=== PATIENT | male | born 1955 | race Caucasian/White ===

== ENCOUNTER 2023-05-04 09:35 | Emergency (ER) | payer MEDICARE ==
[2023-05-04 09:58] VITALS: TEMP 98.2
--- NOTE | 2023-05-04 10:33 | ERPHSYRPT ---
- History of Present Illness Time Seen by Provider: 05/04/23 10:00 Source: patient Exam Limitations: no limitations Patient Subjective Stated Complaint: C/O SOB that started last night. Denies pain. Triage Nursing Assessment: Arrived by ambulance wearing 02 @ 5L per N/C sating 1005. 02 therapy decreased to 2L per N/C; 02 sats 95% on the 2L. Patient is alert and oriented. Labored breaths noted. Wheezes noted in upper lobes. No breath sounds noted in right lower lobe; patient states he had a lobectomy of his right lower lobe 10-15 years ago. Skin serrano/yellow. VASQUEZ WNL. Physician History: This is a 68-year-old white male patient of Dr. Boland who presents to the emergency department by ambulance service for shortness of breath that began worsening last evening. It persisted throughout the night and into the morning. Patient continues to smoke tobacco cigarettes daily. He has a history of COPD but he is not oxygen dependent. He was brought into the emergency department by the paramedics and his room air oxygen saturation level is 90%. He was placed on 2 L of oxygen via nasal cannula and his oxygen saturation level went up to 95%. Patient has a history of hyperlipidemia, hypertension, cirrhosis and dep ression. He denies chest pain. He denies abdominal pain. He does have a chronic cough. Timing/Duration: yesterday, day(s) (Last couple of days) Activities at Onset: activity Severity of Dyspnea-Max: moderate Severity of Dyspnea-Current: moderate Possible Cause: occasional episodes Modifying Factors: Improves With: activity, coughing, oxygen, rest Associated Symptoms: weakness, No chest pain/discomfort, No wheezing Allergies/Adverse Reactions: morphine Allergy (Verified 05/04/23 09:39) Home Medications: Acetaminophen 325 mg [Tylenol 325 mg] 2 tab PO Q6H PRN PRN 05/04/23 [History] Albuterol Sulfate [Albuterol Sulfate Hfa] 2 puff PO Q2H/PRN PRN 05/04/23 [History] Aspirin EC 81 mg [Ecotrin 81 mg] 1 tab PO DAILY 05/04/23 [History] Atorvastatin Calcium 1 tab PO DAILY 05/04/23 [History] Buspirone HCl 5 mg [Buspar 5 mg] 10 mg PO BID 05/04/23 [History] Fenofibrate 1 tab PO DAILY 05/04/23 [History] Fluticasone/Umeclidin/Vilanter [Trelegy Ellipta 100-62.5-25] 1 puff PO DAILY 05/04/23 [History] Gabapentin [Neurontin ] 1 cap PO HS 05/04/23 [History] Ipratropium/Albuterol Sulfate [Iprat-Albut 0.5-3(2.5) mg/3 ml] 1 neb PO Q4H PRN PRN 05/04/23 [History] Oxycodone HCl/Acetaminophen [Oxycodone-Acetaminophn 7.5-325] 1 tab PO Q6H PRN PRN 05/04/23 [History] Sertraline HCl [Zoloft] 1 tab PO HS 05/04/23 [History] Trazodone HCl 50 mg [Desyrel 50 mg] 1 tab PO HS 05/04/23 [History] Hx Tetanus, Diphtheria Vaccination/Date Given: Yes Hx Influenza Vaccination/Date Given: Yes Hx Pneumococcal Vaccination/Date Given: Yes Immunizations Up to Date: Yes Travel Risk - International Travel Have you traveled outside of the country in past 3 weeks: No - Coronavirus Screening Are you exhibiting any of the following symptoms?: Yes Symptoms: Cough: New Onset, Shortness of Breath Close contact with a COVID-19 positive Pt in past 14-21 Days: No - Vaccine Status Have you recieved a Covid-19 vaccination: Yes Director Of Home Health Services: 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 - Review of Systems Constitutional: Lethargy (Mild), Weakness Eyes: No Symptoms Ears, Nose, & Throat: No Symptoms Respiratory: Cough, Dyspnea Cardiac: No Symptoms Abdominal/Gastrointestinal: No Symptoms Genitourinary Symptoms: No Symptoms Musculoskeletal: No Symptoms Skin: No Symptoms Neurological: Lethargy Psychological: No Symptoms Endocrine: No Symptoms Hematologic/Lymphatic: No Symptoms Immunological/Allergic: No Symptoms All Other Systems: Reviewed and Negative - Past Medical History Pertinent Past Medical History: Yes Cardiac History: High Cholesterol, Hypertension Respiratory History: COPD Musculoskeletal History: Fractures GI Medical History: Cirrhosis Psycho-Social History: Depression Other Medical History: Right femur, abdominal aortic aneurysm, lung cancer - Past Surgical History Past Surgical History: Yes Respiratory: Lobectomy Other Surgical History: right hip, left eye reconstruction - Social History Smoking Status: Current every day smoker How long have you smoked: 60 years Exposure to second hand smoke: No Drug Use: none Patient Lives Alone: No ([facility]) - Nursing Vital Signs Nursing Vital Signs: Initial Vital Signs Pulse Rate 101 H 05/04/23 09:38 Respiratory Rate 23 05/04/23 09:38 Blood Pressure 176/105 05/04/23 09:38 O2 Sat by Pulse Oximetry 90 L 05/04/23 09:38 Pain Scale Pain Intensity 0 - Physical Exam General Appearance: moderate distress, lethargy (Mildly), thin Eye Exam: PERRL/EOMI, eyes nml inspection Ears, Nose, Throat Exam: hearing grossly normal, normal ENT inspection Neck Exam: normal inspection, non-tender Respiratory Exam: rhonchi (Bilateral mild) Cardiovascular/Chest Exam: normal heart sounds, regular rate/rhythm Abdominal/Gastrointestinal Exam: soft, normal bowel sounds, No tenderness Rectal Exam: not done Extremity Exam: non-tender, normal range of motion, normal inspection Neurologic Exam: oriented x 3, 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 He is oriented x 3 once you wake him up) Skin Exam: normal color, warm, dry Lymphatic Exam: No adenopathy SpO2 Interpretation: normal, ABG ordered, O2 applied SpO2: 95 O2 Delivery: Nasal Cannula - Course Nursing assessment & vital signs reviewed: Yes EKG Interpreted by Me: RATE (101), Sinus Tach, NORMAL AXIS, NORMAL INTERVALS, Right Bundle Branch Block, Other (No acute ischemic changes on today's twelve- lead EKG.) Ordered Tests: Active Orders 24 hr Category Date Time Status Interior Horticulturist STAT Care 05/04/23 10:34 Active EKG-ER Only STAT Care 05/04/23 10:33 Active IV Insertion STAT Care 05/04/23 10:33 Active Pulse Oximetry (ED) STAT Care 05/04/23 10:33 Active CHEST 1 VIEW (PORTABLE) Stat Exams 05/04/23 10:34 Completed CHEST WITH CONTRAST [CT] Stat Exams 05/04/23 11:55 Completed ABG [ARTERIAL BLOOD GASES] Stat Lab 05/04/23 11:06 Completed BLOOD CULTURE Stat Lab 05/04/23 11:13 Received CBC W DIFF Stat Lab 05/04/23 11:05 Completed CMP Stat Lab 05/04/23 11:05 Completed D-DIMER QUANTITATIVE Stat Lab 05/04/23 11:05 Completed Lactic Acid Stat Lab 05/04/23 10:33 Completed NT PRO BNPII Stat Lab 05/04/23 11:05 Completed TROPONIN Q4H Lab 05/04/23 11:05 Completed TROPONIN Q4H Lab 05/04/23 14:45 Ordered TROPONIN Q4H Lab 05/04/23 18:45 Ordered Medication Summary Generic Name Dose Route Start Last Admin Trade Name Freq PRN Reason Stop Dose Admin Ceftriaxone Sodium 1 gm in 100 mls @ 200 mls/hr 05/04/23 12:56 05/04/23 13:09 Rocephin 1 Gm / 100 Ml Nacl IV 05/04/23 13:25 200 ml/hr STAT ONE 200 mls/hr Administration Discontinued Medications Generic Name Dose Route Start Last Admin Trade Name Freq PRN Reason Stop Dose Admin Methylprednisolone Sodium 0 mg 05/04/23 11:09 05/04/23 11:19 Succinate 125 mg/ Sterile IV 05/04/23 11:10 Not Given Water 2 ml STAT ONE Furosemide 40 mg 05/04/23 12:56 05/04/23 13:08 Furosemide 40 Mg/4 Ml Vial IV 05/04/23 12:57 40 mg STAT ONE Administration Furosemide Confirm 05/04/23 13:05 Furosemide 40 Mg/4 Ml Vial Administered 05/04/23 13:06 Dose 40 mg .ROUTE .STK-MED ONE Heparin Sodium (Beef Lung) 5,000 unit 05/04/23 13:00 05/04/23 13:08 Heparin 5000 Units/0.5 Ml 5,000 Unit/0.5 Ml Syr IV 05/04/23 13:01 5,000 unit STAT ONE Administration Heparin Sodium (Beef Lung) Confirm 05/04/23 13:05 Heparin 5000 Units/0.5 Ml 5,000 Unit/0.5 Ml Syr Administered 05/04/23 13:06 Dose 5,000 unit .ROUTE .STK-MED ONE Ceftriaxone Sodium Confirm 05/04/23 13:05 Rocephin 1 Gm / 100 Ml Nacl Administered 05/04/23 13:06 Dose 1 gm in 100 mls @ ud IV .STK-MED ONE Lab/Rad Data: Laboratory Result Diagrams 05/04/23 11:05 05/04/23 11:05 Laboratory Results 05/04/23 05/04/23 05/04/23 Range/Units 11:06 11:05 11:05 WBC (4.0-10.5) x10^3/uL RBC (4.1-5.6) x10^6/uL Hgb (12.5-18.0) g/dL Hct (42-50) % MCV (78-100) fL MCH (26-32) pg MCHC (32-36) g/dL RDW (11.5-14.0) % Plt Count (150-450) x10^3/uL MPV (7.5-11.0) fL Gran % (36.0-66.0) % Immature Gran % (Auto) (0.00-0.4) % Nucleat RBC Rel Count (0.00-0.1) % Eos # (Auto) (0-0.5) x10^3/uL Immature Gran # (Auto) (0.00-0.03) x10^3u/L Absolute Lymphs (auto) (1.0-4.6) x10^3/uL Absolute Monos (auto) (0.0-1.3) x10^3/uL Absolute Nucleated RBC (0.00-0.01) x10^3u/L Lymphocytes % (24.0-44.0) % Monocytes % (0.0-12.0) % Eosinophils % (0.00-5.0) % Basophils % (0.0-0.4) % Absolute Granulocytes (1.4-6.9) x10^3/uL Basophils # (0-0.4) x10^3/uL D-Dimer (0.0-0.50) mg/L Puncture Site RIGHT RADIAL pCO2 48 H (35-45) mmHg pO2 63 L (75-100) mmHg Base Excess 3.5 H (-2.0-2.0) O2 Saturation 89.0 L (94-100) g/dF ABG pH 7.39 (7.35-7.45) ABG HCO3 29.1 H* (22-28) ABG O2 Sat (Measured) 92.3 L (95-100) % Wes Test y A-a Gradient 77 a/A Ratio 0.45 Hemoglobin 10.3 Carboxyhemoglobin 2.9 (0.0-6.9) % THgb Methemoglobin 0.7 L (1.4-1.5) % Temperature 37.0 C POC O2 Flow Rate 28 % Sodium (137-145) mmol/L Potassium 4.3 (3.5-5.1) mmol/L Chloride (98-107) mmol/L Carbon Dioxide (22-30) mmol/L Anion Gap (5-15) MEQ/L BUN (9-20) mg/dL Creatinine (0.66-1.25) mg/dL Estimated GFR ML/MIN Glucose (74-106) mg/dL Lactic Acid (0.4-2.0) Calcium (8.4-10.2) mg/dL Total Bilirubin (0.2-1.3) mg/dL AST (17-59) U/L ALT (0-50) U/L Alkaline Phosphatase (38-126) U/L Troponin I (0.000-0.034) ng/mL NT-Pro-B Natriuret Pep 35168 (<300) pg/mL Serum Total Protein (6.3-8.2) g/dL Albumin (3.5-5.0) g/dL Influenza Type A Ag NEGATIVE (NEGATIVE) Influenza Type B Ag NEGATIVE (NEGATIVE) RSV (PCR) NEGATIVE (NEGATIVE) SARS-CoV-2 (PCR) NEGATIVE (NEGATIVE) 05/04/23 05/04/23 05/04/23 Range/Units 11:05 11:05 11:05 WBC (4.0-10.5) x10^3/uL RBC (4.1-5.6) x10^6/uL Hgb (12.5-18.0) g/dL Hct (42-50) % MCV (78-100) fL MCH (26-32) pg MCHC (32-36) g/dL RDW (11.5-14.0) % Plt Count (150-450) x10^3/uL MPV (7.5-11.0) fL Gran % (36.0-66.0) % Immature Gran % (Auto) (0.00-0.4) % Nucleat RBC Rel Count (0.00-0.1) % Eos # (Auto) (0-0.5) x10^3/uL Immature Gran # (Auto) (0.00-0.03) x10^3u/L Absolute Lymphs (auto) (1.0-4.6) x10^3/uL Absolute Monos (auto) (0.0-1.3) x10^3/uL Absolute Nucleated RBC (0.00-0.01) x10^3u/L Lymphocytes % (24.0-44.0) % Monocytes % (0.0-12.0) % Eosinophils % (0.00-5.0) % Basophils % (0.0-0.4) % Absolute Granulocytes (1.4-6.9) x10^3/uL Basophils # (0-0.4) x10^3/uL D-Dimer 4.34 H* (0.0-0.50) mg/L Puncture Site pCO2 (35-45) mmHg pO2 (75-100) mmHg Base Excess (-2.0-2.0) O2 Saturation (94-100) g/dF ABG pH (7.35-7.45) ABG HCO3 (22-28) ABG O2 Sat (Measured) (95-100) % Wes Test A-a Gradient a/A Ratio Hemoglobin Carboxyhemoglobin (0.0-6.9) % THgb Methemoglobin (1.4-1.5) % Temperature C POC O2 Flow Rate % Sodium 133 L (137-145) mmol/L Potassium 4.0 (3.5-5.1) mmol/L Chloride 99 (98-107) mmol/L Carbon Dioxide 27 (22-30) mmol/L Anion Gap 11.3 (5-15) MEQ/L BUN 16 (9-20) mg/dL Creatinine 1.11 (0.66-1.25) mg/dL Estimated GFR 71.4 ML/MIN Glucose 150 H (74-106) mg/dL Lactic Acid (0.4-2.0) Calcium 9.4 (8.4-10.2) mg/dL Total Bilirubin 0.70 (0.2-1.3) mg/dL AST 92 H (17-59) U/L ALT 15 (0-50) U/L Alkaline Phosphatase 120 (38-126) U/L Troponin I 10.300 H* (0.000-0.034) ng/mL NT-Pro-B Natriuret Pep (<300) pg/mL Serum Total Protein 7.5 (6.3-8.2) g/dL Albumin 4.0 (3.5-5.0) g/dL Influenza Type A Ag (NEGATIVE) Influenza Type B Ag (NEGATIVE) RSV (PCR) (NEGATIVE) SARS-CoV-2 (PCR) (NEGATIVE) 05/04/23 05/04/23 Range/Units 11:05 10:33 WBC 12.8 H (4.0-10.5) x10^3/uL RBC 3.13 L (4.1-5.6) x10^6/uL Hgb 9.7 L (12.5-18.0) g/dL Hct 30.8 L (42-50) % MCV 98.4 (78-100) fL MCH 31.0 (26-32) pg MCHC 31.5 L (32-36) g/dL RDW 14.7 H (11.5-14.0) % Plt Count 541 H (150-450) x10^3/uL MPV 9.9 (7.5-11.0) fL Gran % 89.7 H (36.0-66.0) % Immature Gran % (Auto) 0.6 H (0.00-0.4) % Nucleat RBC Rel Count 0.0 (0.00-0.1) % Eos # (Auto) 0.01 (0-0.5) x10^3/uL Immature Gran # (Auto) 0.08 H (0.00-0.03) x10^3u/L Absolute Lymphs (auto) 0.76 L (1.0-4.6) x10^3/uL Absolute Monos (auto) 0.41 (0.0-1.3) x10^3/uL Absolute Nucleated RBC 0.00 (0.00-0.01) x10^3u/L Lymphocytes % 5.9 L (24.0-44.0) % Monocytes % 3.2 (0.0-12.0) % Eosinophils % 0.1 (0.00-5.0) % Basophils % 0.5 (0.0-0.4) % Absolute Granulocytes 11.50 H (1.4-6.9) x10^3/uL Basophils # 0.06 (0-0.4) x10^3/uL D-Dimer (0.0-0.50) mg/L Puncture Site pCO2 (35-45) mmHg pO2 (75-100) mmHg Base Excess (-2.0-2.0) O2 Saturation (94-100) g/dF ABG pH (7.35-7.45) ABG HCO3 (22-28) ABG O2 Sat (Measured) (95-100) % Wes Test A-a Gradient a/A Ratio Hemoglobin Carboxyhemoglobin (0.0-6.9) % THgb Methemoglobin (1.4-1.5) % Temperature C POC O2 Flow Rate % Sodium (137-145) mmol/L Potassium (3.5-5.1) mmol/L Chloride (98-107) mmol/L Carbon Dioxide (22-30) mmol/L Anion Gap (5-15) MEQ/L BUN (9-20) mg/dL Creatinine (0.66-1.25) mg/dL Estimated GFR ML/MIN Glucose (74-106) mg/dL Lactic Acid 1.0 (0.4-2.0) Calcium (8.4-10.2) mg/dL Total Bilirubin (0.2-1.3) mg/dL AST (17-59) U/L ALT (0-50) U/L Alkaline Phosphatase (38-126) U/L Troponin I (0.000-0.034) ng/mL NT-Pro-B Natriuret Pep (<300) pg/mL Serum Total Protein (6.3-8.2) g/dL Albumin (3.5-5.0) g/dL Influenza Type A Ag (NEGATIVE) Influenza Type B Ag (NEGATIVE) RSV (PCR) (NEGATIVE) SARS-CoV-2 (PCR) (NEGATIVE) - Progress Progress: improved, re-examined Air Movement: fair Progress Note: 05/04/23 11:14 This patient's medical issue is 1 of moderate complexity. The level of complexity and the workup performed is based on review of the patient's past medical history, review of the patient's medication list, review of the patient drug allergy list, history of present illness and physical findings on examination. The workup in this patient includes placement of an intravenous line, infusion of steroids, drawing of CBC, CMP, BNP, D-dimer, troponin level, chest x-ray, twelve-lead EKG, ABG and viral swabs. 05/04/23 12:30 Chest x-ray was interpreted by the radiologist and I reviewed the impression. The impression states new diffuse pulmonary edema, new small right and tiny left pleural effusions. There is new right mid to lower lung airspace disease 05/04/23 12:57 I interpreted the laboratory data results. Patient has normal renal function and an elevated D-dimer. I ordered a CT scan of the chest with contrast to evaluate for pulmonary embolus. Patient also has a troponin level that is over 10. 05/04/23 12:59 A phone call was made to [facility] in [facility]. After the nursing staff here in the emergency department reviewed the diagnosis and the l aboratory results with the transfer center, they auto accepted this patient. The accepting physician is emergency room physician Dr. Saeed 05/04/23 13:08 CT scan of the chest with contrast was interpreted by the radiologist. It is negative for pulmonary embolus. There is a new right lower lobe consolidating/lung consolidating airspace disease with tiny effusion present. There is also a new small left pleural effusion present. Blood Culture(s) Obtained: Yes Antibiotics given: Yes Counseled pt/family regarding: lab results, diagnosis, rad results Medical Desision Making - Diagnostic Testing Diagnostic test were ordered, analyzed, and reviewed by me: Yes Radiological Interpretation: Reviewed by me, Teleradiologist Report - Risk of complications The pt has a high risk of morbidity or mortality based on: Decision regarding hospitilization or escalation of hosp level of care - Departure Departure Disposition: Transfer Clinical Impression: Shortness of breath, Elevated troponin, CHF exacerbation, Pulmonary infiltrate in right lung on CXR, Elevated d-dimer, Bilateral pleural effusion Condition: Serious Critical Care Time: Yes Critical Care Time(excluding separately billable procedures): Critical 30-74 mins (40 minutes) Referrals: LOULOU BOLAND MD [ACTIVE STAFF] - Follow up/PCP as directed Instructions: Heart Failure
--- NOTE | 2023-05-04 11:04 | XRAY ---
Indication: Short of breath. Comparison: March 15, 2021 Portable chest demonstrates new diffuse pulmonary edema, new small right/tiny left effusions, and new right mid to lower lung airspace disease. Remaining chest unchanged again with COPD and right apical pleural parenchymal fibrosis/scarring. Heart not enlarged. Bony thorax intact.
[2023-05-04] MEDS ORDERED: solu-MEDROL 125 MG, Sterile H2O 10 ml 2 ML IV ONE ×2 (11:09)
[2023-05-04 11:19] VITALS: RESP 24
[2023-05-04 11:23] LABS: BASOPHIL % 0.5 % (0.0-0.4); Basophil (Absolute #) 0.06 x10^3/uL (0-0.4); Eosinophil % 0.1 % (0.00-5.0); Eosinophil (Absolute #) 0.01 x10^3/uL (0-0.5); Hematocrit 30.8 % (42-50); Hemoglobin 9.7 g/dL (12.5-18.0); IMMATURE GRAN # 0.08 x10^3u/L (0.00-0.03); IMMATURE GRAN % 0.6 % (0.00-0.4); Lymphocyte (Absolute #) 0.76 x10^3/uL (1.0-4.6); Lymphocytes % 5.9 % (24.0-44.0); Mean Cell Volume 98.4 fL (78-100); Mean Corpuscular Hgb Concent. 31.5 g/dL (32-36); Mean Platelet Volume 9.9 fL (7.5-11.0); Monocyte (Absolute #) 0.41 x10^3/uL (0.0-1.3); Monocytes % 3.2 % (0.0-12.0); Neutrophil % 89.7 % (36.0-66.0); Platelet Count 541 x10^3/uL (150-450); Red Blood Count 3.13 x10^6/uL (4.1-5.6); Red Cell Distribution Width 14.7 % (11.5-14.0); White Blood Count 12.8 x10^3/uL (4.0-10.5)
[2023-05-04 11:25] LABS: A-aADO2 77; ABG HEMOGLOBIN 10.3; ABG POTASSIUM 4.3 (3.5-5.1); ARTERIAL BLD GAS O2 SATURATION 92.3 % (95-100); ARTERIAL BLOOD GAS BASE EXCESS 3.5 (-2.0-2.0); ARTERIAL BLOOD GAS FIO2 28 %; ARTERIAL BLOOD GAS PCO2 48 mmHg (35-45); ARTERIAL BLOOD GAS PO2 63 mmHg (75-100); ARTERIAL BLOOD GAS pH 7.39 (7.35-7.45); CARBOXYHEMOGLOBIN 2.9 % THgb (0.0-6.9); HCO3- 29.1 (22-28); Methhemoglobin 0.7 % (1.4-1.5); paO2 pAO1 0.45
[2023-05-04 11:26] LABS: ABG SITE RIGHT RADIAL; ALLEN TEST OK? y
[2023-05-04 11:37] LABS: ANION GAP 11.3 MEQ/L (5-15); BILIRUBIN,TOTAL 0.7 mg/dL (0.2-1.3); Calcium 9.4 mg/dL (8.4-10.2); Creatinine 1 1.11 mg/dL (0.66-1.25); EST GLOMERULAR FILTRATION RATE 71.4 ML/MIN; Total Protein 7.5 g/dL (6.3-8.2)
[2023-05-04 12:06] LABS: INFLUENZA A NEGATIVE (NEGATIVE); INFLUENZA B NEGATIVE (NEGATIVE); RESPIRATORY SYNCTIAL VIRUS NEGATIVE (NEGATIVE); SARS-CoV-2 Xpert Express NEGATIVE (NEGATIVE)
[2023-05-04 12:07] VITALS: BP 165/99; PULSE 89
[2023-05-04 12:34] VITALS: O2SAT 95
[2023-05-04] MEDS ORDERED: ROCEPHIN 1 GM / 100 ML NaCl 1 GM/100 ML IVPB IV ONE ×2 (12:56→13:05)
[2023-05-04] MEDS ORDERED: Lasix 40 MG/4 ML IV ONE (12:56)
--- NOTE | 2023-05-04 12:58 | XRAY ---
Indication: Short of breath. Elevated d-dimer. History lung cancer with partial right lung resection. Multiple contiguous axial images obtained through the chest using 80 cc Isovue 370 contrast and PE protocol. Comparison: September 23, 2020 Good opacification of the pulmonary arteries to include the lobar and segmental branches. No pulmonary embolus. Heart not enlarged. Aorta again moderately arteriosclerotic. Mid descending thoracic aorta now demonstrates focus of saccular aneurysm measuring at least 2.5 x 1.3 cm in greatest axial dimension and at least 3 cm in CC dimension. Additional smaller 1.2 x 0.8 cm saccular aneurysm just inferior to this. Again tiny subcarinal calcified nodes. No pathologic mediastinal/hilar lymphadenopathy. Midesophagus demonstrates new fluid leveling presumed from reflux. Lungs demonstrate new posterior right lower lobe consolidating/nonconsolidated airspace disease with tiny effusion. Also new small left effusion with minimal left base compressive atelectasis. Remaining lungs again demonstrate extensive pulmonary emphysema, right lung postsurgical pleural-parenchymal scarring/thickening with volume loss, Bony thorax intact. Limited upper abdomen again demonstrates mild diffuse fatty liver. New incompletely visualized 3.5 x 4.3 cm distal AAA with stent graft, new atrophic right kidney, and 1.5 cm left mid renal cyst. Impression: 1. Negative pulmonary embolus. 2. New right lower lobe consolidating/nonconsolidating airspace disease with tiny effusion. Also new small left effusion. 3. Again diffuse arteriosclerotic disease with new descending thoracic aortic saccular aneurysms as detailed. Also new incompletely visualized distal AAA with stent graft. 4. Incidental chronic findings including right lung postsurgical changes, diffuse pulmonary emphysema, subcarinal calcified node, GERD, fatty liver, and left renal cyst.
[2023-05-04] MEDS ORDERED: HEPARIN 5000 UNITS/0.5 ML (HIGH RISK MED) IV ONE (13:00)
[2023-05-04] MEDS ORDERED: HEPARIN 5000 UNITS/0.5 ML (HIGH RISK MED) ONE (13:05)
[2023-05-04] MEDS ORDERED: Lasix 40 MG/4 ML ONE (13:05)
== END 2023-05-04 14:05 | disposition short-term general hospital (02) ==
LOC: ED 09:35
DX: R06.02 Shortness of breath (principal); R77.8 Other specified abnormalities of plasma proteins; I11.0 Hypertensive heart disease with heart failure; I50.9 Heart failure, unspecified; R91.8 Other nonspecific abnormal finding of lung field; R79.1 Abnormal coagulation profile; J90 Pleural effusion, not elsewhere classified; E78.5 Hyperlipidemia, unspecified; Z79.891 Long term (current) use of opiate analgesic; Z79.899 Other long term (current) drug therapy; Z72.0 Tobacco use; Z20.828 Contact with and (suspected) exposure to other viral communicable diseases
CPT/HCPCS: 0241U; 36000; 36415; 36600; 71045; 71260; 80053; 82375; 82803; 83605; 83880; 84484; 85025; 85379; 87040; 93005; 93041; 94760; 96375; 99285; 99291; J0696; J1644; J1940

== ENCOUNTER 2023-05-29 02:22 | Inpatient (IN) | payer MEDICARE ==
--- NOTE | 2023-05-29 02:31 | ERPHSYRPT ---
- History of Present Illness Historian: patient, family Exam Limitations: no limitations Timing/Duration: yesterday Activities at Onset: none Quality: aching Abdominal Pain Onset Location: generalized abdomen Pain Radiation: no radiation Severity of Pain-Max: mild (To moderate) Modifying Factors: Improves With: vomiting (X 3 episodes) Associated Symptoms: fever/chills, fatigue, nausea, vomiting, weakness, No shortness of breath Previous symptoms: recently seen, recent hospitalization Hx Tetanus, Diphtheria Vaccination/Date Given: Yes Hx Influenza Vaccination/Date Given: Yes Hx Pneumococcal Vaccination/Date Given: Yes <ROSALVA EDWARDS - Last Filed: 05/29/23 07:03> <WALESKA RAY - Last Filed: 05/29/23 10:19> - History of Present Illness Time Seen by Provider: 05/29/23 02:30 Physician History: This is a 68-year-old white male patient of Dr. Boland who presents by private vehicle from home with complaints of vomiting x 3 and abdominal pain. He also has complaints of fatigue, fever, chills, cough, shortness of breath, headache and bodyaches. Patient was a resident at the [facility]-care facility rehabbing post open heart surgery. He was seen here in our emergency department on 05/04/2023 and was transferred out to [facility] facility secondary to significant shortness of breath and very high troponin level. He has a well-healed midline sternotomy scar. Patient has a history of hyperlipidemia, hypertension, COPD, cirrhosis, abdominal aortic aneurysm and lung cancer in the past. He is a smoker of cigarettes daily. Because of his abdominal pain symptoms and headache as well as body aches, patient took an oxycodone 7.5/325 mg at 2 this morning. He currently denies chest pain and has no significant shortness of breath. Patient was discharged from the [facility] yesterday, 05/28/2023. (ROSALVA EDWARDS) Allergies/Adverse Reactions: morphine Allergy (Verified 05/29/23 03:04) Home Medications: Acetaminophen 325 mg [Tylenol 325 mg] 2 tab PO Q6H PRN PRN 05/04/23 [His tory] Albuterol Sulfate [Albuterol Sulfate Hfa] 2 puff PO Q2H/PRN PRN 05/04/23 [History] Atorvastatin Calcium 1 tab PO DAILY 05/04/23 [History] Buspirone HCl 5 mg [Buspar 5 mg] 10 mg PO BID 05/04/23 [History] Fenofibrate 1 tab PO DAILY 05/04/23 [History] Gabapentin [Neurontin ] 1 cap PO HS 05/04/23 [History] Ipratropium/Albuterol Sulfate [Iprat-Albut 0.5-3(2.5) mg/3 ml] 1 neb PO Q4H PRN PRN 05/04/23 [History] Oxycodone HCl/Acetaminophen [Oxycodone-Acetaminophn 7.5-325] 1 tab PO Q6H PRN PRN 05/04/23 [History] Sertraline HCl [Zoloft] 1 tab PO HS 05/04/23 [History] Trazodone HCl 50 mg [Desyrel 50 mg] 1 tab PO HS 05/04/23 [History] Travel Risk - International Travel Have you traveled outside of the country in past 3 weeks: No - Coronavirus Screening Are you exhibiting any of the following symptoms?: Yes Symptoms: Fever, Cough: New Onset, Vomiting/Diarrhea, Headaches/Body Aches/Fatigue Close contact with a COVID-19 positive Pt in past 14-21 Days: No - Vaccine Status Have you recieved a Covid-19 vaccination: Yes 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 <ROSALVA EDWARDS - Last Filed: 05/29/23 07:03> - Review of Systems Constitutional: Fever, Chills, Weakness Eyes: No Symptoms Ears, Nose, & Throat: No Symptoms Respiratory: Cough Cardiac: No Symptoms Abdominal/Gastrointestinal: Abdominal Pain, Nausea, Vomiting, Appetite Changes Genitourinary Symptoms: No Symptoms Musculoskeletal: No Symptoms Skin: No Symptoms Neurological: No Symptoms Psychological: No Symptoms Endocrine: No Symptoms Hematologic/Lymphatic: No Symptoms Immunological/Allergic: No Symptoms All Other Systems: Reviewed and Negative <ROSALVA EDWARDS - Last Filed: 05/29/23 07:03> - Past Medical History Pertinent Past Medical History: Yes Cardiac History: High Cholesterol, Hypertension Respiratory History: COPD Musculoskeletal History: Fractures GI Medical History: Cirrhosis Psycho-Social History: Depression Other Medical History: Right femur, abdominal aortic aneurysm, lung cancer - Past Surgical History Past Surgical History: Yes Respiratory: Lobectomy Other Surgical History: right hip, left eye reconstruction - Social History Smoking Status: Current every day smoker How long have you smoked: 60 years Exposure to second hand smoke: No Drug Use: none Patient Lives Alone: No (The [facility]) <ROSALVA EDWARDS - Last Filed: 05/29/23 07:03> - Physical Exam General Appearance: no apparent distress, alert, anxiety, thin Eye Exam: PERRL/EOMI, eyes nml inspection Ears, Nose, Throat Exam: normal ENT inspection, moist mucous membranes Neck Exam: normal inspection, non-tender, supple, full range of motion Respiratory Exam: normal breath sounds, lungs clear, airway intact, No chest t enderness, No respiratory distress Cardiovascular Exam: regular rate/rhythm, normal heart sounds, normal peripheral pulses, other (Well-healing midline sternotomy scar) Gastrointestinal/Abdomen Exam: soft, normal bowel sounds, No tenderness Rectal Exam: not done Back Exam: normal inspection, normal range of motion, No CVA tenderness, No vertebral tenderness Extremity Exam: normal inspection, normal range of motion, pelvis stable Neurologic Exam: alert, oriented x 3, cooperative, sales and service associate II-XII nml as tested, normal mood/affect, nml cerebellar function, nml station & gait, sensation nml Skin Exam: normal color, warm, dry Lymphatic Exam: No adenopathy SpO2 Interpretation: borderline oxygenation O2 Delivery: Room Air <ROSALVA EDWARDS - Last Filed: 05/29/23 07:03> - Nursing Vital Signs Nursing Vital Signs: Initial Vital Signs Temperature 98.7 F 05/29/23 02:24 Pulse Rate 74 05/29/23 02:24 Respiratory Rate 25 H 05/29/23 02:24 Blood Pressure 203/96 05/29/23 02:24 O2 Sat by Pulse Oximetry 88 L 05/29/23 02:24 Pain Scale Pain Intensity 6 - Course Nursing assessment & vital signs reviewed: Yes EKG Interpreted by Me: RATE (71), Sinus Rhythm, NORMAL AXIS, NORMAL INTERVALS, NORMAL QRS, NORMAL ST-T, Other (No acute ischemic changes on today's twelve-lead EKG.) <ROSALVA EDWARDS - Last Filed: 05/29/23 07:03> Ordered Tests: Active Orders 24 hr Category Date Time Status EKG-ER Only STAT Care 05/29/23 03:26 Completed IV Insertion STAT Care 05/29/23 03:26 Active ABDOMEN AND PELVIS W/0 CONTRAS [CT] Stat Exams 05/29/23 04:23 Completed CHEST WITH CONTRAST [CT] Stat Exams 05/29/23 06:00 Completed HEAD WITHOUT CONTRAST [CT] Stat Exams 05/29/23 06:00 Completed AMYLASE Stat Lab 05/29/23 04:06 Completed BNPII [NT PRO BNPII] Stat Lab 05/29/23 04:06 Completed CBC W DIFF Stat Lab 05/29/23 04:06 Completed CMP Stat Lab 05/29/23 04:06 Completed LIPASE Stat Lab 05/29/23 04:06 Completed MAGNESIUM Stat Lab 05/29/23 04:06 Completed MONO SCREEN Stat Lab 05/29/23 04:06 Completed TROPONIN Q4H Lab 05/29/23 09:40 Completed TROPONIN Q4H Lab 05/29/23 13:45 Ordered TROPONIN Q4H Lab 05/29/23 17:45 Ordered TROPONIN Q4H Lab 05/29/23 21:45 Ordered TROPONIN Stat Lab 05/29/23 04:06 Completed UA W/RFX UR CULTURE Stat Lab 05/29/23 03:27 Completed Medication Summary Generic Name Dose Route Start Last Admin Trade Name Freq PRN Reason Stop Dose Admin Sodium Chloride 1,000 mls @ 100 mls/hr 05/29/23 03:30 05/29/23 04:08 Sodium Chloride 0.9% 1000 Ml IV 06/28/23 03:29 100 mls/hr .Q10H GERSON Administration Discontinued Medications Generic Name Dose Route Start Last Admin Trade Name Freq PRN Reason Stop Dose Admin Enoxaparin Sodium 65 mg 05/29/23 07:03 05/29/23 07:39 Enoxaparin Sodium 80 Mg/0.8 Ml Syringe SQ 05/29/23 07:04 65 mg STAT ONE Administration Enoxaparin Sodium Confirm 05/29/23 07:33 Enoxaparin Sodium 80 Mg/0.8 Ml Syringe Administered 05/29/23 07:34 Dose 80 mg SQ .STK-MED ONE Furosemide 40 mg 05/29/23 06:43 05/29/23 07:38 Furosemide 40 Mg/4 Ml Vial IV 05/29/23 06:44 40 mg STAT ONE Administration Furosemide Confirm 05/29/23 07:33 Furosemide 40 Mg/4 Ml Vial Administered 05/29/23 07:34 Dose 40 mg .ROUTE .STK-MED ONE Ceftriaxone Sodium 1 gm in 100 mls @ 200 mls/hr 05/29/23 06:40 05/29/23 08:21 Rocephin 1 Gm / 100 Ml Nacl IV 05/29/23 07:09 Infused STAT ONE Infusion Ceftriaxone Sodium Confirm 05/29/23 07:34 Rocephin 1 Gm / 100 Ml Nacl Administered 05/29/23 07:35 Dose 1 gm in 100 mls @ ud IV .STK-MED ONE Labetalol HCl 10 mg 05/29/23 05:47 05/29/23 05:55 Labetalol Hcl 20 Mg/4 Ml Disp.Syringe IV 05/29/23 05:48 10 mg STAT ONE Administration Labetalol HCl Confirm 05/29/23 05:53 Labetalol Hcl 20 Mg/4 Ml Disp.Syringe Administered 05/29/23 05:54 Dose 20 mg IV .STK-MED ONE Labetalol HCl 5 mg 05/29/23 06:51 05/29/23 07:38 Labetalol Hcl 20 Mg/4 Ml Disp.Syringe IV 05/29/23 06:52 5 mg STAT ONE Administration Labetalol HCl Confirm 05/29/23 07:34 Labetalol Hcl 20 Mg/4 Ml Disp.Syringe Administered 05/29/23 07:35 Dose 20 mg IV .STK-MED ONE Meperidine HCl 25 mg 05/29/23 05:47 05/29/23 06:03 Meperidine Hcl 25 Mg Syringe IV 05/29/23 05:48 Not Given STAT ONE Meperidine HCl Confirm 05/29/23 05:52 Meperidine Hcl 50 Mg/Ml Carp Administered 05/29/23 05:53 Dose 50 mg .ROUTE .STK-MED ONE Meperidine HCl 25 mg 05/29/23 06:04 05/29/23 06:07 Meperidine Hcl 50 Mg/Ml Carp IV 05/29/23 06:05 25 mg STAT ONE Administration Ondansetron HCl 4 mg 05/29/23 05:47 05/29/23 05:54 Ondansetron Hcl 4 Mg/2 Ml Vial IV 05/29/23 05:48 4 mg STAT ONE Administration Ondansetron HCl Confirm 05/29/23 05:52 Ondansetron Hcl 4 Mg/2 Ml Vial Administered 05/29/23 05:53 Dose 4 mg .ROUTE .STK-MED ONE Lab/Rad Data: Laboratory Result Diagrams 05/29/23 04:06 05/29/23 04:06 Laboratory Results 05/29/23 05/29/23 05/29/23 Range/Units 09:40 04:06 04:06 WBC (4.0-10.5) x10^3/uL RBC (4.1-5.6) x10^6/uL Hgb (12.5-18.0) g/dL Hct (42-50) % MCV (78-100) fL MCH (26-32) pg MCHC (32-36) g/dL RDW (11.5-14.0) % Plt Count (150-450) x10^3/uL MPV (7.5-11.0) fL Gran % (36.0-66.0) % Immature Gran % (Auto) (0.00-0.4) % Nucleat RBC Rel Count (0.00-0.1) % Eos # (Auto) (0-0.5) x10^3/uL Immature Gran # (Auto) (0.00-0.03) x10^3u/L Absolute Lymphs (auto) (1.0-4.6) x10^3/uL Absolute Monos (auto) (0.0-1.3) x10^3/uL Absolute Nucleated RBC (0.00-0.01) x10^3u/L Lymphocytes % (24.0-44.0) % Monocytes % (0.0-12.0) % Eosinophils % (0.00-5.0) % Basophils % (0.0-0.4) % Absolute Granulocytes (1.4-6.9) x10^3/uL Basophils # (0-0.4) x10^3/uL Sodium (137-145) mmol/L Potassium (3.5-5.1) mmol/L Chloride (98-107) mmol/L Carbon Dioxide (22-30) mmol/L Anion Gap (5-15) MEQ/L BUN (9-20) mg/dL Creatinine (0.66-1.25) mg/dL Estimated GFR ML/MIN Glucose (74-106) mg/dL Calcium (8.4-10.2) mg/dL Magnesium 2.1 (1.6-2.3) mg/dL Total Bilirubin (0.2-1.3) mg/dL AST (17-59) U/L ALT (0-50) U/L Alkaline Phosphatase (38-126) U/L Troponin I 0.061 H* (0.000-0.034) ng/mL NT-Pro-B Natriuret Pep 21275 (<300) pg/mL Serum Total Protein (6.3-8.2) g/dL Albumin (3.5-5.0) g/dL Amylase (30-110) U/L Lipase (23-300) U/L Urine Color (Yellow) Urine Appearance (Clear) Urine pH (4.6-8.0) Ur Specific [place] (1.005-1.030) Urine Protein (Negative) Urine Glucose (UA) (Negative) mg/dL Urine Ketones (Negative) Urine Blood (Negative) Urine Nitrite (Negative) Urine Bilirubin (Negative) Urine Urobilinogen (0.2) mg/dL Ur Leukocyte Esterase (Negative) U Hyaline Cast (Auto) (0-2) /LPF Urine Microscopic RBC (0-5) /HPF Urine Microscopic WBC (0-5) /HPF Ur Epithelial Cells (None Seen) /HPF Urine Bacteria (None Seen) /HPF Urine Culture Reflexed (NO) Monoscreen (NEGATIVE) Influenza Type A Ag NEGATIVE (NEGATIVE) Influenza Type B Ag NEGATIVE (NEGATIVE) RSV (PCR) NEGATIVE (NEGATIVE) SARS-CoV-2 (PCR) NEGATIVE (NEGATIVE) 05/29/23 05/29/23 05/29/23 Range/Units 04:06 04:06 04:06 WBC (4.0-10.5) x10^3/uL RBC (4.1-5.6) x10^6/uL Hgb (12.5-18.0) g/dL Hct (42-50) % MCV (78-100) fL MCH (26-32) pg MCHC (32-36) g/dL RDW (11.5-14.0) % Plt Count (150-450) x10^3/uL MPV (7.5-11.0) fL Gran % (36.0-66.0) % Immature Gran % (Auto) (0.00-0.4) % Nucleat RBC Rel Count (0.00-0.1) % Eos # (Auto) (0-0.5) x10^3/uL Immature Gran # (Auto) (0.00-0.03) x10^3u/L Absolute Lymphs (auto) (1.0-4.6) x10^3/uL Absolute Monos (auto) (0.0-1.3) x10^3/uL Absolute Nucleated RBC (0.00-0.01) x10^3u/L Lymphocytes % (24.0-44.0) % Monocytes % (0.0-12.0) % Eosinophils % (0.00-5.0) % Basophils % (0.0-0.4) % Absolute Granulocytes (1.4-6.9) x10^3/uL Basophils # (0-0.4) x10^3/uL Sodium 134 L (137-145) mmol/L Potassium 3.7 (3.5-5.1) mmol/L Chloride 99 (98-107) mmol/L Carbon Dioxide 34 H (22-30) mmol/L Anion Gap 5.5 (5-15) MEQ/L BUN 14 (9-20) mg/dL Creatinine 0.91 (0.66-1.25) mg/dL Estimated GFR 90.7 ML/MIN Glucose 138 H (74-106) mg/dL Calcium 9.4 (8.4-10.2) mg/dL Magnesium (1.6-2.3) mg/dL Total Bilirubin 0.50 (0.2-1.3) mg/dL AST 25 (17-59) U/L ALT 14 (0-50) U/L Alkaline Phosphatase 149 H (38-126) U/L Troponin I 0.067 H* (0.000-0.034) ng/mL NT-Pro-B Natriuret Pep (<300) pg/mL Serum Total Protein 7.1 (6.3-8.2) g/dL Albumin 3.8 (3.5-5.0) g/dL Amylase 49 (30-110) U/L Lipase 36 (23-300) U/L Urine Color (Yellow) Urine Appearance (Clear) Urine pH (4.6-8.0) Ur Specific [place] (1.005-1.030) Urine Protein (Negative) Urine Glucose (UA) (Negative) mg/dL Urine Ketones (Negative) Urine Blood (Negative) Urine Nitrite (Negative) Urine Bilirubin (Negative) Urine Urobilinogen (0.2) mg/dL Ur Leukocyte Esterase (Negative) U Hyaline Cast (Auto) (0-2) /LPF Urine Microscopic RBC (0-5) /HPF Urine Microscopic WBC (0-5) /HPF Ur Epithelial Cells (None Seen) /HPF Urine Bacteria (None Seen) /HPF Urine Culture Reflexed (NO) Monoscreen NEGATIVE (NEGATIVE) Influenza Type A Ag (NEGATIVE) Influenza Type B Ag (NEGATIVE) RSV (PCR) (NEGATIVE) SARS-CoV-2 (PCR) (NEGATIVE) 05/29/23 05/29/23 Range/Units 04:06 03:27 WBC 10.2 (4.0-10.5) x10^3/uL RBC 3.42 L (4.1-5.6) x10^6/uL Hgb 10.0 L (12.5-18.0) g/dL Hct 32.4 L (42-50) % MCV 94.7 (78-100) fL MCH 29.2 (26-32) pg MCHC 30.9 L (32-36) g/dL RDW 14.1 H (11.5-14.0) % Plt Count 350 (150-450) x10^3/uL MPV 10.3 (7.5-11.0) fL Gran % 82.0 H (36.0-66.0) % Immature Gran % (Auto) 0.5 H (0.00-0.4) % Nucleat RBC Rel Count 0.0 (0.00-0.1) % Eos # (Auto) 0.02 (0-0.5) x10^3/uL Immature Gran # (Auto) 0.05 H (0.00-0.03) x10^3u/L Absolute Lymphs (auto) 1.13 (1.0-4.6) x10^3/uL Absolute Monos (auto) 0.59 (0.0-1.3) x10^3/uL Absolute Nucleated RBC 0.00 (0.00-0.01) x10^3u/L Lymphocytes % 11.1 L (24.0-44.0) % Monocytes % 5.8 (0.0-12.0) % Eosinophils % 0.2 (0.00-5.0) % Basophils % 0.4 (0.0-0.4) % Absolute Granulocytes 8.33 H (1.4-6.9) x10^3/uL Basophils # 0.04 (0-0.4) x10^3/uL Sodium (137-145) mmol/L Potassium (3.5-5.1) mmol/L Chloride (98-107) mmol/L Carbon Dioxide (22-30) mmol/L Anion Gap (5-15) MEQ/L BUN (9-20) mg/dL Creatinine (0.66-1.25) mg/dL Estimated GFR ML/MIN Glucose (74-106) mg/dL Calcium (8.4-10.2) mg/dL Magnesium (1.6-2.3) mg/dL Total Bilirubin (0.2-1.3) mg/dL AST (17-59) U/L ALT (0-50) U/L Alkaline Phosphatase (38-126) U/L Troponin I (0.000-0.034) ng/mL NT-Pro-B Natriuret Pep (<300) pg/mL Serum Total Protein (6.3-8.2) g/dL Albumin (3.5-5.0) g/dL Amylase (30-110) U/L Lipase (23-300) U/L Urine Color Yellow (Yellow) Urine Appearance Clear (Clear) Urine pH 8.0 (4.6-8.0) Ur Specific [place] 1.020 (1.005-1.030) Urine Protein 300 A (Negative) Urine Glucose (UA) Negative (Negative) mg/dL Urine Ketones Negative (Negative) Urine Blood Negative (Negative) Urine Nitrite Negative (Negative) Urine Bilirubin Negative (Negative) Urine Urobilinogen 0.2 (0.2) mg/dL Ur Leukocyte Esterase Negative (Negative) U Hyaline Cast (Auto) NONE SEEN (0-2) /LPF Urine Microscopic RBC 3-5 (0-5) /HPF Urine Microscopic WBC 0-2 (0-5) /HPF Ur Epithelial Cells None Seen (None Seen) /HPF Urine Bacteria None Seen (None Seen) /HPF Urine Culture Reflexed NO (NO) Monoscreen (NEGATIVE) Influenza Type A Ag (NEGATIVE) Influenza Type B Ag (NEGATIVE) RSV (PCR) (NEGATIVE) SARS-CoV-2 (PCR) (NEGATIVE) - Progress Progress: improved, pain not gone completely, re-examined Counseled pt/family regarding: lab results, diagnosis, need for follow-up, rad results <ROSALVA EDWARDS - Last Filed: 05/29/23 07:03> - Progress Progress: improved, pain not gone completely, re-examined <WALESKA RAY - Last Filed: 05/29/23 10:19> - Progress Progress Note: 05/29/23 06:07 This patient's medical issue is 1 of moderate to high complexity. The level of complexity in the workup performed is based on review of the patient's past medical history, review of the patient's medication list, review of the patient' s drug allergy list, history of present illness and physical findings on examination. The workup in this patient includes placement of intravenous line, CBC, CMP, amylase, lipase, urinalysis, CT scan of the abdomen pelvis without contrast, twelve-lead EKG, troponin level. I interpreted the patient's laboratory data results. Patient's troponin is elevated. However, approximately 3 weeks ago patient had a troponin level of approximately 10. He had surgical intervention and that troponin value is decreasing to near normal. He has no complaints of chest pain. He does have shortness of breath and cough symptoms. I added a magnesium level and a BNP to the patient's labs. Those results are pending. CT scan of abdomen pelvis without contrast was interpreted by the radiologist and I reviewed the impression. Pression states appendix is intact without evidence of inflammation. There is no free air or ascites. There is small fat- containing umbilical and right inguinal hernias. There is unremarkable abdominal aorta without aneurysm or dissection. There is bilateral lower lung lobe airspace opacification likely pneumonic consolidation. There is mild bilateral pleural effusions. There is an enlarged prostate. There is a subcutaneous soft tissue lesion posterior aspect proximal right thigh. These results were discussed in detail with the patient and his sister. Based on the CT scan of the abdomen and pelvis findings, I am ordering a CT scan of the chest with contrast. In addition, because of the patient's significantly high blood pressure and his vomiting and headache symptoms and negative viral studies, I am ordering a CT scan of the patient's head. In discussing the patient's medication list, emergency room nurse Shanta compared the medication list that the patient states he been taking 2 what the patient should be taking based on pharmacy records. The patient is supposed to be on amiodarone, Plavix, Lasix, losartan, metoprolol in addition to what he has been taking. Basically, the patient has not been taking any of those other medications as listed above since his discharge from the other hospital facility on 05/12/2023. When asked why he has not filled those prescriptions, the patient and sister state that they were not ready to be picked up when the patient was being transported to the [facility]. 05/29/23 06:18 05/29/23 06:44 Patient care is being transferred to Dr. Ray at shift change. Dr. Ray was advised of the patient's history, presenting complaint, physical findings, pending radiographic study results and I reviewed the results of the studies (radiographic and laboratory) that have returned. He will make final disposition. (ROSALVA EDWARDS) 05/29/23 07:19 I took over care for pt at 07:00 after discussing case w/ Dr Edwards. 05/29/23 10:13 CT head negative for acute changes CTA chest showed: possible filling defect in one segmental branch of right upper lobe pulmonary arterial tree - pt received dose of prophylactic lovenox in ED right upper lobe consolidation left pleural effusion pt has proBNP > 44560, given dose of of lasix in ED received 1g rocephin troponin decreased from .067 to .061, low suspicion of new onset ACS in setting of recent CABG I discussed pt case and possible admission w/ Dr Gale who accepts, will admit to inpatient (WALESKA RAY) Medical Desision Making - Independent Historian Additional History obtained from: Family - Diagnostic Testing Diagnostic test were ordered, analyzed, and reviewed by me: Yes Radiological Interpretation: Reviewed by me, Teleradiologist Report - Risk of complications The pt has a high risk of morbidity or mortality based on: Decision regarding hospitilization or escalation of hosp level of care <ROSALVA EDWARDS - Last Filed: 05/29/23 07:03> - Discussion of managment Care discussed with:: hospitalist Reviewed:: Test results Agreed on:: decision to admit Will see patient: in hospital - Diagnostic Testing Diagnostic test were ordered, analyzed, and reviewed by me: Yes Radiological Interpretation: Reviewed by me, Teleradiologist Report - Risk of complications The pt has a high risk of morbidity or mortality based on: Decision regarding hospitilization or escalation of hosp level of care <WALESKA RAY - Last Filed: 05/29/23 10:19> - Departure Critical Care Time: Yes Critical Care Time(excluding separately billable procedures): Critical 30-74 mins (60 minutes) <ROSALVA EDWARDS - Last Filed: 05/29/23 07:03> - Departure Departure Disposition: In-patient Admission <WALESKA RAY - Last Filed: 05/29/23 10:19> - Departure Clinical Impression: Vomiting, Shortness of breath, Cough, Pneumonia, CHF (congestive heart failure), Hypertensive urgency, Elevated troponin I level, Pleural effusion Condition: Stable Referrals: LOULUO BOLAND MD [Primary Care Provider] - Follow up/PCP as directed Instructions: Heart Failure
[2023-05-29] MEDS: Sodium Chloride 0.9% 1000 ML 1,000 ML IV SCH (04:08)
[2023-05-29 04:17] LABS: Absolute Neutrophil Ct (ANC) 8.33 x10^3/uL (1.4-6.9); BASOPHIL % 0.4 % (0.0-0.4); Basophil (Absolute #) 0.04 x10^3/uL (0-0.4); Eosinophil % 0.2 % (0.00-5.0); Eosinophil (Absolute #) 0.02 x10^3/uL (0-0.5); Hematocrit 32.4 % (42-50); IMMATURE GRAN # 0.05 x10^3u/L (0.00-0.03); IMMATURE GRAN % 0.5 % (0.00-0.4); Lymphocyte (Absolute #) 1.13 x10^3/uL (1.0-4.6); Lymphocytes % 11.1 % (24.0-44.0); Mean Cell Volume 94.7 fL (78-100); Mean Corpuscular Hemoglobin 29.2 pg (26-32); Mean Corpuscular Hgb Concent. 30.9 g/dL (32-36); Mean Platelet Volume 10.3 fL (7.5-11.0); Monocyte (Absolute #) 0.59 x10^3/uL (0.0-1.3); Monocytes % 5.8 % (0.0-12.0); Platelet Count 350 x10^3/uL (150-450); Red Blood Count 3.42 x10^6/uL (4.1-5.6); Red Cell Distribution Width 14.1 % (11.5-14.0); White Blood Count 10.2 x10^3/uL (4.0-10.5)
[2023-05-29 04:30] LABS: ALBUMIN 3.8 g/dL (3.5-5.0); ANION GAP 5.5 MEQ/L (5-15); BILIRUBIN,TOTAL 0.5 mg/dL (0.2-1.3); Calcium 9.4 mg/dL (8.4-10.2); Creatinine 1 0.91 mg/dL (0.66-1.25); EST GLOMERULAR FILTRATION RATE 90.7 ML/MIN; Potassium 3.7 mmol/L (3.5-5.1); Total Protein 7.1 g/dL (6.3-8.2)
[2023-05-29 04:45] LABS: INFLUENZA A NEGATIVE (NEGATIVE); INFLUENZA B NEGATIVE (NEGATIVE); RESPIRATORY SYNCTIAL VIRUS NEGATIVE (NEGATIVE); SARS-CoV-2 Xpert Express NEGATIVE (NEGATIVE)
--- NOTE | 2023-05-29 05:51 | XRAY ---
CLINICAL HISTORY: Nausea vomiting diarrhea fever TECHNIQUE: CT of the abdomen and pelvis was performed with axial images as well as sagittal and coronal reconstruction images without intravenous contrast. COMPARISON: None. FINDINGS: Bilateral lower lung lobes airspace opacification, likely pneumonic consolidation, please correlate clinically. Mild bilateral pleural effusion. Atelectatic bands seen at posterior lung lobes. Liver is enlarged, measuring 19 cm. No focal lesions. No dilated intrahepatic biliary radicles. Unremarkable appearing gallbladder with no stones wall thickening or pericholecystic inflammatory changes or fluid. Unremarkable appearing pancreas. No pancreatic mass or ductal dilatation is seen. Unremarkable appearing spleen. The adrenal glands are normal. Decreased size of the right kidney with cortical thinning suggestive of renal medical disease. Normal size of the right kidney. No stones or hydronephrosis. S/p endovascular repair of abdominal aneurysm. Atherosclerotic calcification of the aorta and branches. The ureters are normal with no stones. Unremarkable abdominal aorta without specific evidence of aneurysm or dissection. IVC is normal. The visualized distal esophagus appears unremarkable. The stomach appears unremarkable. Unremarkable appearing duodenum. Small Bowel and colon are non-distended with no abnormality. The appendix appears intact. No free air and no ascites. The bladder is unremarkable with no stones. The prostate is enlarged, measuring 3.3 X4.7X 4 cm with calcification. Small fat-containing umbilical and right inguinal hernias. A subcutaneous soft tissue lesion seen at the posterior aspect of proximal right thigh, would recommend ultrasound for further evaluation. Small calcifications are seen at L3 vertebral body. IMPRESSION: 1. Bilateral lower lung lobes airspace opacification, likely pneumonic consolidation, would recommend clinical and laboratory correlation. 2. Mild bilateral pleural effusion. 3. Hepatomegaly. 4. Decreased size of the right kidney with cortical thinning suggestive of renal medical disease, please correlate clinically. 5. Enlarged prostate. 6. Small fat-containing umbilical and right inguinal hernias.Subcutaneous soft tissue lesion seen at the posterior aspect of proximal right thigh, would recommend ultrasound for further evaluation. Electronically Signed by: Maryjo Armstrong MD. (05/29/2023 05:47:04 EST)
[2023-05-29] MEDS ORDERED: DEMEROL 50 MG ONE (05:52)
[2023-05-29] MEDS ORDERED: Zofran 4 MG/2 ML VIAL ONE (05:52)
[2023-05-29] MEDS ORDERED: TRANDATE 20 MG/4 ML SYRINGE IV ONE ×2 (05:53→07:34)
[2023-05-29] MEDS: Zofran 4 MG/2 ML VIAL IV ONE (05:54)
[2023-05-29] MEDS: TRANDATE 20 MG/4 ML SYRINGE IV ONE ×2 (05:55→07:38)
[2023-05-29] MEDS: DEMEROL 25MG SYRINGE IV ONE (06:03)
[2023-05-29] MEDS: DEMEROL 50 MG IV ONE (06:07)
[2023-05-29 06:26] LABS: Appearance Clear (Clear); Bacteria None Seen /HPF (None Seen); Bilirubin Negative (Negative); Blood Negative (Negative); Epithelial Cells None Seen /HPF (None Seen); Glucose, Urine Negative (Negative); Hyaline Casts NONE SEEN /LPF (0-2); Ketones Negative (Negative); Leukocyte Esterase Negative (Negative); Nitrite Negative (Negative); Protein,Urine Dip 300 (Negative); Urobilinogen 0.2 mg/dL (0.2); WBC 0-2 /HPF (0-5)
[2023-05-29 06:28] LABS: MAGNESIUM 2.1 mg/dL (1.6-2.3)
[2023-05-29 06:41] LABS: ADD URINE CULTURE? NO (NO)
[2023-05-29] MEDS ORDERED: Lasix 40 MG/4 ML ONE (07:33)
[2023-05-29] MEDS ORDERED: ENOXAPARIN SODIUM SQ ONE (07:33)
[2023-05-29] MEDS ORDERED: ROCEPHIN 1 GM / 100 ML NaCl 1 GM/100 ML IVPB IV ONE (07:34)
[2023-05-29] MEDS: Lasix 40 MG/4 ML IV ONE (07:38)
[2023-05-29] MEDS: ROCEPHIN 1 GM / 100 ML NaCl 1 GM/100 ML IVPB IV ONE (07:38)
[2023-05-29] MEDS: ENOXAPARIN SODIUM SQ ONE (07:39)
--- NOTE | 2023-05-29 08:51 | XRAY ---
CLINICAL HISTORY: Headache, hypertension TECHNIQUE: An axial non-contrast CT scan of the brain was performed with multiple reformats. Motion artifacts are noted at the skull base limiting evaluation. COMPARISON: None. FINDINGS: The visualized brain parenchyma shows a normal appearance. Shaikh-white matter differentiation is maintained. No midline shifts or deformity. No intracerebral or extra axial hematoma. The ventricular system, cortical sulci and basal cisterns are prominent consistent with senile changes. Physiological calcifications of the basal ganglia are noted. The cerebello-pontine angles are clear. The pituitary gland, the pineal gland, the optic chiasm is unremarkable. Evidence of previous fixation along the inferior and lateral left orbital wall. Motion artifacts limits evaluation of osseous structures in the skull base yet no gross finding is appreciable. No definite calvarium fractures. Atheromatous calcifications of vertebral arteries noted. The scanned paranasal sinuses are clear, the nasal septum is deviated to the right side. IMPRESSION: 1. No acute findings noted. 2. Senile brain changes. Electronically Signed by: Maryjo Armstrong MD. (05/29/2023 08:46:18 EST)
--- NOTE | 2023-05-29 09:03 | XRAY ---
CLINICAL HISTORY: Fever/chills, cough TECHNIQUE: CT images of the chest were acquired with the administration of intravenous contrast. Coronal and sagittal reconstructions were obtained. COMPARISON: Dated: 05/04/2023. FINDINGS: A possible filling defect is seen in one of the segmental branches of the right upper lobe, this filling defect was barely appreciable in the previous study. The main pulmonary branches and the rest segmental vessels are free from emboli. Partial volume loss is seen in the right hemithorax secondary to right lower lobe lobectomy. Partial resolution of the previously visualized right upper lobar consolidative opacities. The visualized bilateral lung lobes shows considerable centrilobular emphysematous changes and architextural distortion (especially in the right lower lobe). Still noted hyperdense layering in the right basal pleural space and curvilinear foci of calcification in the right base and apex. Resolution of the left basal interlobular septal thickening. Mild regression of the amount of left pleural effusion, considered to be minimal to mild. New appreciated sternotomy. Minimal pericardial effusion. No suspiciously enlarged mediastinal nodes or masses. 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 No lytic or sclerotic lesions in the visualized spine. IMPRESSION: 1. Possible filling defect in one segmental branch of the right upper lobe pulmonary arterial tree. 2. Mild resolution of the previously appreciated right upper lobar consolidative opacities. 3. Mild regression of the amount of left pleural effusion, considered to be minimal to mild as well as resolution of the left basal interlobular septal thickening (reflecting resolution of interstitial edema). 4. Minimal pericardial effusion. 5. 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 6. Bilateral centrilobular emphysematous changes with architextural distortion in the right hemithorax (post-surgery changes). [facility] was called on [id number] at 07:55 AM [employer], 05/29/2023 and Moe Oliver was informed about significant medical findings. Electronically Signed by: Maryjo Armstrong MD. (05/29/2023 08:59:18 EST)
--- NOTE | 2023-05-29 11:56 | PCM.HP ---
History of Present Illness - Chief Complaint Chief Complaint: SOB, CHF, HTN urgency Date: 05/29/23 History of Present Illness: is a 68 year old male with PMHX of COPD, HTN, hyperlipidemia, cirrhosis, depression, lung cancer, 1 ppd smoker, AAA, and recent CABG at [facility]. He present today by private vehicle from home with complaints of vomiting x 3 and abdominal pain. He explained this has since resolved. He also has complaints of fatigue, possible fever, chills, cough, shortness of breath, headache, and body aches. Patient was a resident at the [facility] rehabbing post open heart surgery. He went home yesterday with oxygen, 2lNC. He was seen here in our emergency department on 05/04/2023 and was transferred out to [facility] facility secondary to significant shortness of breath and very high troponin level. He has a well- healed midline sternotomy scar. Because of his abdominal pain symptoms and headache as well as body aches, patient took an oxycodone 7.5/325 mg at 2 this morning. On admission. He continues to have chills, elevated ALFREDO of 191/78, and generalized sensation of not feeling well. He admits to not taking his home meds with unknown date of last dose of Bp meds. Since he was d/c'd from rehab yesterday most likely did get them there. Will restart BP meds. Stop IV fluids. He was given several doses of labetalol in ER for BP. Given lasix, and antibiotics in ER. Will continue lasix for CHF, antibiotics for pneumonia, lovenox for possible PE. He denies SOB, chest pain, Abd. abd. pain, N/V/D at this time. - Review of Systems Constitutional: Fatigue, Malaise, No Fever, No Chills Eyes: No Symptoms Ears, Nose, & Throat: No Symptoms Respiratory: Cough (with white production), Short Of Breath Cardiac: No Chest Pain, No Edema, No Syncope Abdominal/Gastrointestinal: Abdominal Pain (resolved since admission), Vomiting (resolved), No Nausea, No Diarrhea Genitourinary Symptoms: No Dysuria Musculoskeletal: No Back Pain, No Neck Pain Skin: Skin Lesions (Multiple lesions of left leg, abd. incisions from CABG. Right leg skin tears. ), No Rash Neurological: No Dizziness, No Focal Weakness, No Sensory Changes Psychological: No Symptoms Endocrine: No Symptoms Hematologic/Lymphatic: No Symptoms Immunological/Allergic: No Symptoms Medications & Allergies Home Medications: Home Medication List Acetaminophen 325 mg [Tylenol 325 mg] 2 tab PO Q6H PRN PRN 05/04/23 [History Confirmed 05/29/23] Albuterol Sulfate [Albuterol Sulfate Hfa] 2 puff PO Q2H/PRN PRN 05/04/23 [History Confirmed 05/29/23] Atorvastatin Calcium 1 tab PO DAILY 05/04/23 [History Confirmed 05/29/23] Buspirone HCl 5 mg [Buspar 5 mg] 10 mg PO BID 05/04/23 [History Confirmed 05/29/23] Fenofibrate 1 tab PO DAILY 05/04/23 [History Confirmed 05/29/23] Gabapentin [Neurontin ] 1 cap PO HS 05/04/23 [History Confirmed 05/29/23] Ipratropium/Albuterol Sulfate [Iprat-Albut 0.5-3(2.5) mg/3 ml] 1 neb PO Q4H PRN PRN 05/04/23 [History Confirmed 05/29/23] Oxycodone HCl/Acetaminophen [Oxycodone-Acetaminophn 7.5-325] 1 tab PO Q6H PRN PRN 05/04/23 [History Confirmed 05/29/23] Sertraline HCl [Zoloft] 1 tab PO HS 05/04/23 [History Confirmed 05/29/23] Trazodone HCl 50 mg [Desyrel 50 mg] 1 tab PO HS 05/04/23 [History Confirmed 05/29/23] Amiodarone HCl 1 tab PO DAILY 05/29/23 [History Confirmed 05/29/23] Clopidogrel Bisulfate [PLAVIX Tablet] 1 tab PO DAILY 05/29/23 [History Confirmed 05/29/23] Famotidine 20 mg [Pepcid 20 MG] 1 tab PO BID 05/29/23 [History Confirmed 05/29/23] Furosemide 40 mg [Lasix 40 MG] 1 tab PO BID 05/29/23 [History Confirmed 05/29/23] Isosorbide Mononitrate 60 mg [Imdur 60MG] 1 tab PO DAILY 05/29/23 [History Confirmed 05/29/23] Losartan Potassium 50 mg [Cozaar 50 MG] 1 tab PO BID 05/29/23 [History Confirmed 05/29/23] Metoprolol Tartrate 25 mg [Lopressor 25MG Tab] 1 tab PO BID 05/29/23 [History Confirmed 05/29/23] Potassium Chloride [Klor-Con M20] 1 tab PO BID 05/29/23 [History Confirmed 05/29/23] Allergies/Adverse Reactions: Allergies Allergy/AdvReac Type Severity Reaction Status Date / Time morphine Allergy Verified 05/29/23 03:04 - Past Medical History Past Medical History: Yes Neurological History: No Pertinent History ENT History: Cataracts Cardiac History: High Cholesterol, Hypertension Respiratory History: COPD Endocrine Medical History: No Pertinent History Musculoskelatal History: Fractures GI Medical History: Cirrhosis History: No Pertinent History Pyscho-Social History: Depression Male Reproductive Disorders: No Pertinent History Comment: Right femur, abdominal aortic aneurysm, lung cancer - Past Surgical History Past Surgical History: Yes Cardiac History: CABG, Cardiac Stent Respiratory Surgery: Lobectomy GI Surgical History: No Pertinent History Genitourinary Surgical Hx: No Pertinent History Musculskeletal Surgical Hx: Orthopedic Surgery Male Surgical History: No Pertinent History Other Surgical History: right hip, left eye reconstruction - Social History Smoking Status: Current every day smoker How long have you smoked: 60 years Exposure to second hand smoke: No Alcohol: None Drug Use: none - Physical Exam Vital Signs: Vital Signs - 24 hr Temp Pulse Resp BP BP Pulse Ox 05/29/23 11:00 75 23 185/90 05/29/23 10:45 68 17 194/84 05/29/23 10:30 65 19 184/85 05/29/23 10:15 68 22 186/86 05/29/23 10:00 20 178/95 05/29/23 09:45 71 23 194/105 05/29/23 09:30 68 18 197/78 05/29/23 09:15 64 16 167/114 100 05/29/23 09:00 28 H 172/77 02/25/24 08:45 69 20 175/84 02/25/24 08:30 67 17 177/81 92 L 05/29/23 08:15 64 15 152/71 99 05/29/23 08:00 66 25 H 176/82 95 05/29/23 07:45 63 13 183/79 100 05/29/23 07:30 65 15 178/82 05/29/23 07:15 65 14 186/90 100 05/29/23 07:00 67 17 176/83 05/29/23 06:45 67 15 177/82 95 05/29/23 06:44 79 30 H 91 L 05/29/23 06:15 62 16 179/90 97 05/29/23 06:00 63 19 199/91 96 05/29/23 05:45 71 22 204/102 97 05/29/23 05:34 80 21 197/102 98 05/29/23 05:30 70 14 201/101 100 05/29/23 05:00 98.6 F 75 20 199/100 99 05/29/23 04:59 70 17 204/98 100 05/29/23 04:50 68 15 100 05/29/23 04:43 79 18 94 L 05/29/23 04:00 70 14 194/94 99 05/29/23 03:30 70 16 191/92 05/29/23 03:00 71 16 188/93 97 05/29/23 02:34 71 18 97 05/29/23 02:24 98.7 F 74 25 H 203/96 88 L General Appearance: no apparent distress, alert, thin Neurologic Exam: alert, oriented x 3, cooperative, normal mood/affect, nml cerebellar function, nml station & gait, sensation nml, No motor deficits Eye Exam: PERRL/EOMI, eyes nml inspection Ears, Nose, Throat Exam: normal ENT inspection, TMs normal, pharynx normal, moist mucous membranes Neck Exam: normal inspection, non-tender, supple, full range of motion Respiratory Exam: normal breath sounds, lungs clear, No respiratory distress Cardiovascular Exam: normal heart sounds, normal peripheral pulses, irregular Gastrointestinal/Abdomen Exam: soft, normal bowel sounds, No tenderness, No mass Back Exam: normal inspection, normal range of motion, No CVA tenderness, No vertebral tenderness Extremity Exam: normal inspection, normal range of motion, pelvis stable Skin Exam: warm, dry, jaundice, other (Left leg site incisions, and abd incisions from chest tubes from recent CABG. Appear to be healing. Some purulent drainge coming from 1 abd. wound. Pics in chart. Skin tears of right upper thigh. Bruising of BL feet.), No rash Lymphatic Exam: No adenopathy Results - Labs Lab/Micro Results: Lab Results-Last 24 Hours 05/29/23 05/29/23 05/29/23 Range/Units 03:27 04:06 04:06 WBC 10.2 (4.0-10.5) x10^3/uL RBC 3.42 L (4.1-5.6) x10^6/uL Hgb 10.0 L (12.5-18.0) g/dL Hct 32.4 L (42-50) % MCV 94.7 (78-100) fL MCH 29.2 (26-32) pg MCHC 30.9 L (32-36) g/dL RDW 14.1 H (11.5-14.0) % Plt Count 350 (150-450) x10^3/uL MPV 10.3 (7.5-11.0) fL Gran % 82.0 H (36.0-66.0) % Immature Gran % (Auto) 0.5 H (0.00-0.4) % Nucleat RBC Rel Count 0.0 (0.00-0.1) % Eos # (Auto) 0.02 (0-0.5) x10^3/uL Immature Gran # (Auto) 0.05 H (0.00-0.03) x10^3u/L Absolute Lymphs (auto) 1.13 (1.0-4.6) x10^3/uL Absolute Monos (auto) 0.59 (0.0-1.3) x10^3/uL Absolute Nucleated RBC 0.00 (0.00-0.01) x10^3u/L Lymphocytes % 11.1 L (24.0-44.0) % Monocytes % 5.8 (0.0-12.0) % Eosinophils % 0.2 (0.00-5.0) % Basophils % 0.4 (0.0-0.4) % Absolute Granulocytes 8.33 H (1.4-6.9) x10^3/uL Basophils # 0.04 (0-0.4) x10^3/uL Sodium 134 L (137-145) mmol/L Potassium 3.7 (3.5-5.1) mmol/L Chloride 99 (98-107) mmol/L Carbon Dioxide 34 H (22-30) mmol/L Anion Gap 5.5 (5-15) MEQ/L BUN 14 (9-20) mg/dL Creatinine 0.91 (0.66-1.25) mg/dL Estimated GFR 90.7 ML/MIN Glucose 138 H (74-106) mg/dL Calcium 9.4 (8.4-10.2) mg/dL Magnesium (1.6-2.3) mg/dL Total Bilirubin 0.50 (0.2-1.3) mg/dL AST 25 (17-59) U/L ALT 14 (0-50) U/L Alkaline Phosphatase 149 H (38-126) U/L Troponin I (0.000-0.034) ng/mL NT-Pro-B Natriuret Pep (<300) pg/mL Serum Total Protein 7.1 (6.3-8.2) g/dL Albumin 3.8 (3.5-5.0) g/dL Amylase 49 (30-110) U/L Lipase 36 (23-300) U/L Urine Color Yellow (Yellow) Urine Appearance Clear (Clear) Urine pH 8.0 (4.6-8.0) Ur Specific [place] 1.020 (1.005-1.030) Urine Protein 300 A (Negative) Urine Glucose (UA) Negative (Negative) mg/dL Urine Ketones Negative (Negative) Urine Blood Negative (Negative) Urine Nitrite Negative (Negative) Urine Bilirubin Negative (Negative) Urine Urobilinogen 0.2 (0.2) mg/dL Ur Leukocyte Esterase Negative (Negative) U Hyaline Cast (Auto) NONE SEEN (0-2) /LPF Urine Microscopic RBC 3-5 (0-5) /HPF Urine Microscopic WBC 0-2 (0-5) /HPF Ur Epithelial Cells None Seen (None Seen) /HPF Urine Bacteria None Seen (None Seen) /HPF Urine Culture Reflexed NO (NO) Monoscreen (NEGATIVE) Influenza Type A Ag (NEGATIVE) Influenza Type B Ag (NEGATIVE) RSV (PCR) (NEGATIVE) SARS-CoV-2 (PCR) (NEGATIVE) 05/29/23 05/29/23 05/29/23 Range/Units 04:06 04:06 04:06 WBC (4.0-10.5) x10^3/uL RBC (4.1-5.6) x10^6/uL Hgb (12.5-18.0) g/dL Hct (42-50) % MCV (78-100) fL MCH (26-32) pg MCHC (32-36) g/dL RDW (11.5-14.0) % Plt Count (150-450) x10^3/uL MPV (7.5-11.0) fL Gran % (36.0-66.0) % Immature Gran % (Auto) (0.00-0.4) % Nucleat RBC Rel Count (0.00-0.1) % Eos # (Auto) (0-0.5) x10^3/uL Immature Gran # (Auto) (0.00-0.03) x10^3u/L Absolute Lymphs (auto) (1.0-4.6) x10^3/uL Absolute Monos (auto) (0.0-1.3) x10^3/uL Absolute Nucleated RBC (0.00-0.01) x10^3u/L Lymphocytes % (24.0-44.0) % Monocytes % (0.0-12.0) % Eosinophils % (0.00-5.0) % Basophils % (0.0-0.4) % Absolute Granulocytes (1.4-6.9) x10^3/uL Basophils # (0-0.4) x10^3/uL Sodium (137-145) mmol/L Potassium (3.5-5.1) mmol/L Chloride (98-107) mmol/L Carbon Dioxide (22-30) mmol/L Anion Gap (5-15) MEQ/L BUN (9-20) mg/dL Creatinine (0.66-1.25) mg/dL Estimated GFR ML/MIN Glucose (74-106) mg/dL Calcium (8.4-10.2) mg/dL Magnesium (1.6-2.3) mg/dL Total Bilirubin (0.2-1.3) mg/dL AST (17-59) U/L ALT (0-50) U/L Alkaline Phosphatase (38-126) U/L Troponin I 0.067 H* (0.000-0.034) ng/mL NT-Pro-B Natriuret Pep (<300) pg/mL Serum Total Protein (6.3-8.2) g/dL Albumin (3.5-5.0) g/dL Amylase (30-110) U/L Lipase (23-300) U/L Urine Color (Yellow) Urine Appearance (Clear) Urine pH (4.6-8.0) Ur Specific [place] (1.005-1.030) Urine Protein (Negative) Urine Glucose (UA) (Negative) mg/dL Urine Ketones (Negative) Urine Blood (Negative) Urine Nitrite (Negative) Urine Bilirubin (Negative) Urine Urobilinogen (0.2) mg/dL Ur Leukocyte Esterase (Negative) U Hyaline Cast (Auto) (0-2) /LPF Urine Microscopic RBC (0-5) /HPF Urine Microscopic WBC (0-5) /HPF Ur Epithelial Cells (None Seen) /HPF Urine Bacteria (None Seen) /HPF Urine Culture Reflexed (NO) Monoscreen NEGATIVE (NEGATIVE) Influenza Type A Ag NEGATIVE (NEGATIVE) Influenza Type B Ag NEGATIVE (NEGATIVE) RSV (PCR) NEGATIVE (NEGATIVE) SARS-CoV-2 (PCR) NEGATIVE (NEGATIVE) 05/29/23 05/29/23 Range/Units 04:06 09:40 WBC (4.0-10.5) x10^3/uL RBC (4.1-5.6) x10^6/uL Hgb (12.5-18.0) g/dL Hct (42-50) % MCV (78-100) fL MCH (26-32) pg MCHC (32-36) g/dL RDW (11.5-14.0) % Plt Count (150-450) x10^3/uL MPV (7.5-11.0) fL Gran % (36.0-66.0) % Immature Gran % (Auto) (0.00-0.4) % Nucleat RBC Rel Count (0.00-0.1) % Eos # (Auto) (0-0.5) x10^3/uL Immature Gran # (Auto) (0.00-0.03) x10^3u/L Absolute Lymphs (auto) (1.0-4.6) x10^3/uL Absolute Monos (auto) (0.0-1.3) x10^3/uL Absolute Nucleated RBC (0.00-0.01) x10^3u/L Lymphocytes % (24.0-44.0) % Monocytes % (0.0-12.0) % Eosinophils % (0.00-5.0) % Basophils % (0.0-0.4) % Absolute Granulocytes (1.4-6.9) x10^3/uL Basophils # (0-0.4) x10^3/uL Sodium (137-145) mmol/L Potassium (3.5-5.1) mmol/L Chloride (98-107) mmol/L Carbon Dioxide (22-30) mmol/L Anion Gap (5-15) MEQ/L BUN (9-20) mg/dL Creatinine (0.66-1.25) mg/dL Estimated GFR ML/MIN Glucose (74-106) mg/dL Calcium (8.4-10.2) mg/dL Magnesium 2.1 (1.6-2.3) mg/dL Total Bilirubin (0.2-1.3) mg/dL AST (17-59) U/L ALT (0-50) U/L Alkaline Phosphatase (38-126) U/L Troponin I 0.061 H* (0.000-0.034) ng/mL NT-Pro-B Natriuret Pep 98485 (<300) pg/mL Serum Total Protein (6.3-8.2) g/dL Albumin (3.5-5.0) g/dL Amylase (30-110) U/L Lipase (23-300) U/L Urine Color (Yellow) Urine Appearance (Clear) Urine pH (4.6-8.0) Ur Specific [place] (1.005-1.030) Urine Protein (Negative) Urine Glucose (UA) (Negative) mg/dL Urine Ketones (Negative) Urine Blood (Negative) Urine Nitrite (Negative) Urine Bilirubin (Negative) Urine Urobilinogen (0.2) mg/dL Ur Leukocyte Esterase (Negative) U Hyaline Cast (Auto) (0-2) /LPF Urine Microscopic RBC (0-5) /HPF Urine Microscopic WBC (0-5) /HPF Ur Epithelial Cells (None Seen) /HPF Urine Bacteria (None Seen) /HPF Urine Culture Reflexed (NO) Monoscreen (NEGATIVE) Influenza Type A Ag (NEGATIVE) Influenza Type B Ag (NEGATIVE) RSV (PCR) (NEGATIVE) SARS-CoV-2 (PCR) (NEGATIVE) - Radiology Impressions Radiology Exams & Impressions: Radiology Procedures Category Date Time Status ABDOMEN AND PELVIS W/0 CONTRAS [CT] Stat Exams 05/29/23 04:23 Completed CHEST WITH CONTRAST [CT] Stat Exams 05/29/23 06:00 Completed HEAD WITHOUT CONTRAST [CT] Stat Exams 05/29/23 06:00 Completed Assessment/Plan (1) S/P CABG (coronary artery bypass graft) Current Visit: Yes Status: Acute Assessment & Plan: - Done at [facility] and competed rehab yesterday and sent home. - abd sites from chest tubes appear to be healing. 1 site has some purulent drainage. - pics in chart - left leg sites appear to be healing well - use hibiclens on affected areas, keep clean and dry. - Bactrian packet to affected areas - Continue plavix Code(s): Z95.1 - PRESENCE OF AORTOCORONARY BYPASS GRAFT (2) CHF (congestive heart failure) Current Visit: Yes Status: Acute Assessment & Plan: - exacerbation - TELE - BNP 67255 - Lasix 80 bid - 2lNC- @ baseline - Stop IVF -Continue metoprolol Code(s): I50.9 - HEART FAILURE, UNSPECIFIED (3) Elevated troponin I level Current Visit: Yes Status: Acute Assessment & Plan: - Trop 0.061, 0.067 3rd trop pending - pt denies CP - Tele - demand ischemia from CHF exacerbation - EKG Code(s): R79.89 - OTHER SPECIFIED ABNORMAL FINDINGS OF BLOOD CHEMISTRY (4) Hypertensive urgency Current Visit: Yes Status: Acute Assessment & Plan: - labetalol gave in ER - restart home meds - pt has not had for maybe 2 days now. - BP on arrival to the floor 185/90 Code(s): I16.0 - HYPERTENSIVE URGENCY (5) Pleural effusion Current Visit: Yes Status: Acute Assessment & Plan: - as seen on CT Code(s): J90 - PLEURAL EFFUSION, NOT ELSEWHERE CLASSIFIED (6) Pneumonia Current Visit: Yes Status: Acute Assessment & Plan: - CTA chest 225 IMPRESSION: 1. Possible filling defect in one segmental branch of the right upper lobe pulmonary arterial tree. 2. Mild resolution of the previously appreciated right upper lobar consolidative opacities. 3. Mild regression of the amount of left pleural effusion, considered to be minimal to mild as well as resolution of the left basal interlobular septal thickening (reflecting resolution of interstitial edema). 4. Minimal pericardial effusion. 5. 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 6. Bilateral centrilobular emphysematous changes with architextural distortion in the right hemithorax (post-surgery changes). - Ceftriaxone started in ER - Per CT Mild resolution of [place] consolidation - Continue antibiotics, steriods, nebs. - Lactic acid pending - therapeutic lovenox as PE not ruled out. Code(s): J18.9 - PNEUMONIA, UNSPECIFIED ORGANISM (7) Shortness of breath Current Visit: Yes Status: Acute Assessment & Plan: - On baseline O2 2lNC - 2:2 COPD, Pneumonia - D-Dimer pending Code(s): R06.02 - SHORTNESS OF BREATH (8) Vomiting Current Visit: Yes Status: Acute Assessment & Plan: - resolved since admission - zofran PRN Code(s): R11.10 - VOMITING, UNSPECIFIED (9) Proteinuria Current Visit: Yes Status: Acute Assessment & Plan: - 2:2 vomiting, recent surgery - IVF gave in ER - kidney function WNL Code(s): R80.9 - PROTEINURIA, UNSPECIFIED (10) Pleural effusion Current Visit: Yes Status: Acute Assessment & Plan: - as seen on CT - IV lasix. Code(s): J90 - PLEURAL EFFUSION, NOT ELSEWHERE CLASSIFIED (11) Smoker Current Visit: Yes Status: Chronic Assessment & Plan: - advised cessation - refused nicotine patch Code(s): F17.200 - NICOTINE DEPENDENCE, UNSPECIFIED, UNCOMPLICATED (12) Depression Current Visit: Yes Status: Chronic Assessment & Plan: - continue home meds VTE: Lovenox PPI: pepcid Next of kin: Sister D/C plan: 2-3 days Code status: full Code(s): F32.A - DEPRESSION, UNSPECIFIED
[2023-05-29] MEDS: ROCEPHIN 1 GM / 100 ML NaCl 1 GM/100 ML IVPB IV SCH (13:05)
[2023-05-29] MEDS: Xopenex 1.25 MG/0.5 ML UD NEBULE IH PRN (13:13)
[2023-05-29] MEDS: Cordarone 200 MG PO SCH (13:45)
[2023-05-29] MEDS: BUSPAR 5 MG PO SCH (13:45)
[2023-05-29] MEDS: PLAVIX Tablet PO SCH (13:45)
[2023-05-29] MEDS: ZOCOR 20MG PO SCH (13:45)
[2023-05-29] MEDS: Imdur 60MG PO SCH (13:45)
[2023-05-29] MEDS: Lopressor 25MG Tab PO SCH (13:45)
[2023-05-29] MEDS: Tricor 145 MG PO SCH (13:46)
[2023-05-29] MEDS: Cozaar 50 MG PO SCH (13:46)
[2023-05-29] MEDS: PERCOCET TABLET 5/325MG PO PRN (13:49)
[2023-05-29] MEDS: solu-MEDROL 20 MG, Sterile H2O 10 ml 1 ML IV SCH (13:51)
[2023-05-29] MEDS: Klor Con PO SCH ×2 (14:15→17:48)
[2023-05-29] MEDS: Pepcid 20 MG PO SCH ×2 (14:15→17:49)
[2023-05-29 14:16] LABS: PREALBUMIN 15.25 mg/dL (17.6-36.0)
[2023-05-29] MEDS: PIPERACILLIN/TAZOBACTAM 4.5 GM in Sodium Chloride 100ML MINI-BAG PLUS 100 ML IV SCH (14:31)
[2023-05-29 14:36] LABS: TROPONIN 0.058 ng/mL (0.000-0.034)
[2023-05-29] MEDS: TYLENOL 325 MG PO PRN (14:39)
[2023-05-29] MEDS: BACIGUENT 30 GM TP SCH (17:49)
[2023-05-29] MEDS: Furosemide 100mg/10 ml Vial IV SCH (17:49)
[2023-05-29] MEDS: DESYREL 50 MG PO SCH (21:43)
[2023-05-29] MEDS: ZOLOFT 50 MG TABLET PO SCH (21:43)
[2023-05-29] MEDS: NEURONTIN PO SCH (21:43)
[2023-05-29] MEDS ORDERED: NEURONTIN PO SCH (22:00)
[2023-05-29] MEDS: ENOXAPARIN SODIUM SQ SCH (22:00)
[2023-05-30 05:34] LABS: Hematocrit 29.3 % (42-50); Mean Cell Volume 94.2 fL (78-100); Mean Corpuscular Hemoglobin 28.9 pg (26-32); Mean Corpuscular Hgb Concent. 30.7 g/dL (32-36); Mean Platelet Volume 10.6 fL (7.5-11.0); Platelet Count 427 x10^3/uL (150-450); Red Blood Count 3.11 x10^6/uL (4.1-5.6); Red Cell Distribution Width 14.3 % (11.5-14.0); White Blood Count 5.5 x10^3/uL (4.0-10.5)
[2023-05-30 06:05] LABS: ALBUMIN 3.4 g/dL (3.5-5.0); ANION GAP 9.1 MEQ/L (5-15); BILIRUBIN,TOTAL 0.4 mg/dL (0.2-1.3); Creatinine 1 1.25 mg/dL (0.66-1.25); Potassium 3.6 mmol/L (3.5-5.1); Total Protein 6.6 g/dL (6.3-8.2)
--- NOTE | 2023-05-30 13:58 | PCM.NOTE ---
Date and Time: 05/30/23 1350 Subjective Assessment: 05/29/23 is a 68 year old male with PMHX of COPD, HTN, hyperlipidemia, cirrhosis, depression, lung cancer, 1 ppd smoker, AAA, and recent CABG at [facility]. He present today by private vehicle from home with complaints of vomiting x 3 and abdominal pain. He explained this has since resolved. He also has complaints of fatigue, possible fever, chills, cough, shortness of breath, headache, and body aches. Patient was a resident at the [facility] rehabbing post open heart surgery. He went home yesterday with oxygen, 2lNC. He was seen here in our emergency department on 05/04/2023 and was transferred out to [facility] facility secondary to significant shortness of breath and very high troponin level. He has a well- healed midline sternotomy scar. Because of his abdominal pain symptoms and headache as well as body aches, patient took an oxycodone 7.5/325 mg at 2 this morning. On admission. He continues to have chills, elevated ALFREDO of 191/78, and generalized sensation of not feeling well. He admits to not taking his home meds with unknown date of last dose of Bp meds. Since he was d/c'd from rehab yesterday most likely did get them there. Will restart BP meds. Stop IV fluids. He was given several doses of labetalol in ER for BP. Given lasix, and antibiotics in ER. Will continue lasix for CHF, antibiotics for pneumonia, lovenox for possible PE. He denies SOB, chest pain, Abd. abd. pain, N/V/D at this time. 05/30/23 Pt sitting up in bed. He is feeling much better today. Blood pressure is well controlled with home meds. SOB has improved an on baseline oxygen at 2lNC. Continues to have crackles in BLLL. Will continue Lasix. Possible d/c tomorrow. Discussed with case management, pt will need HHC. Pt denies CP, abd. pain, N/V/D. - Review of Systems Constitutional: No Fever, No Chills Eyes: No Symptoms Ears, Nose, & Throat: No Symptoms Respiratory: Orthopnea, Short Of Breath, No Cough Cardiac: No Chest Pain, No Edema, No Syncope Abdominal/Gastrointestinal: No Abdominal Pain, No Nausea, No Vomiting, No Diarrhea Genitourinary Symptoms: No Dysuria Musculoskeletal: No Back Pain, No Neck Pain Skin: No Rash Neurological: No Dizziness, No Focal Weakness, No Sensory Changes Psychological: No Symptoms Endocrine: No Symptoms Hematologic/Lymphatic: No Symptoms Immunological/Allergic: No Symptoms Objective Exam General Appearance: no apparent distress, alert Neurologic Exam: alert, oriented x 3, cooperative, normal mood/affect, nml cerebellar function, sensation nml, No motor deficits Skin Exam: normal color, warm, dry Wound Assessment: Skin/Wound Assessment Wound/Incision Assessment Start: 05/29/23 13:05 Text: Status: Active Freq: Q6H Protocol: Document 05/30/23 11:00 JV (Rec: 05/30/23 12:26 JV [id number]) Wound/Incision Assessment Right Upper Thigh Wound Assessment Shift Assessment Wound Type Incision Wound Stage Non Pressure Wound General Appearance Open to air Comment 2 incisions in the healing process from surgery. Skin tears on top of thigh open to air. Upper Abdomen Wound Assessment Shift Assessment Wound Type Incision Wound Stage Non Pressure Wound Drainage Amount None General Appearance Open to air Comment 3 healing incisions from chest tubes Wound Photo Photo Taken Yes Eye Exam: PERRL, EOMI, eyes nml inspection Ears, Nose, Throat Exam: normal ENT inspection, pharynx normal, moist mucous membranes Neck Exam: normal inspection, non-tender, supple, full range of motion Respiratory Exam: crackles/rales (BLLL), No respiratory distress Cardiovascular Exam: regular rate/rhythm, normal heart sounds Gastrointestinal/Abdomen Exam: soft, No tenderness, No mass Extremity Exam: normal inspection, normal range of motion Back Exam: normal inspection, normal range of motion, No CVA tenderness, No vertebral tenderness Male Genitalia Exam: deferred Rectal Exam: deferred OBJECTIVE DATA Vital Signs: Vital Signs - 24 hr Temp Pulse Resp BP Pulse Ox 05/30/23 11:21 98.4 F 66 20 122/75 97 05/30/23 07:11 97.8 F 67 19 116/56 96 05/30/23 06:55 67 19 91 L 05/30/23 05:12 64 18 91 L 05/30/23 04:00 97.8 F 68 18 109/53 92 L 05/29/23 23:29 97.5 F 62 18 102/55 98 05/29/23 20:00 97.9 F 58 L 24 126/60 94 L 05/29/23 19:33 90 L 05/29/23 16:00 98.6 F 60 18 159/74 98 Pain Assessment - Last Documented Pain Intensity 5 Pain Scale Used 0-10 Pain Scale Intake and Output: Intake & Output 05/28/23 05/29/23 05/30/23 05/31/23 11:59 11:59 11:59 11:59 Intake Total 860 1160 480 Output Total 1225 Balance -365 1160 480 Weight 63.5 kg Lab Results: Lab Results-Last 24 Hours 05/29/23 05/29/23 05/29/23 Range/Units 13:40 13:40 13:45 WBC (4.0-10.5) x10^3/uL RBC (4.1-5.6) x10^6/uL Hgb (12.5-18.0) g/dL Hct (42-50) % MCV (78-100) fL MCH (26-32) pg MCHC (32-36) g/dL RDW (11.5-14.0) % Plt Count (150-450) x10^3/uL MPV (7.5-11.0) fL D-Dimer 5.92 H* (0.0-0.50) mg/L Sodium (137-145) mmol/L Potassium (3.5-5.1) mmol/L Chloride (98-107) mmol/L Carbon Dioxide (22-30) mmol/L Anion Gap (5-15) MEQ/L BUN (9-20) mg/dL Creatinine (0.66-1.25) mg/dL Estimated GFR ML/MIN Glucose (74-106) mg/dL Lactic Acid 1.8 (0.4-2.0) Calcium (8.4-10.2) mg/dL Total Bilirubin (0.2-1.3) mg/dL AST (17-59) U/L ALT (0-50) U/L Alkaline Phosphatase (38-126) U/L Troponin I 0.058 H* (0.000-0.034) ng/mL Serum Total Protein (6.3-8.2) g/dL Albumin (3.5-5.0) g/dL Prealbumin 15.25 L (17.6-36.0) mg/dL 05/29/23 05/29/23 05/30/23 Range/Units 17:45 22:31 04:14 WBC 5.5 (4.0-10.5) x10^3/uL RBC 3.11 L (4.1-5.6) x10^6/uL Hgb 9.0 L (12.5-18.0) g/dL Hct 29.3 L (42-50) % MCV 94.2 (78-100) fL MCH 28.9 (26-32) pg MCHC 30.7 L (32-36) g/dL RDW 14.3 H (11.5-14.0) % Plt Count 427 (150-450) x10^3/uL MPV 10.6 (7.5-11.0) fL D-Dimer (0.0-0.50) mg/L Sodium (137-145) mmol/L Potassium (3.5-5.1) mmol/L Chloride (98-107) mmol/L Carbon Dioxide (22-30) mmol/L Anion Gap (5-15) MEQ/L BUN (9-20) mg/dL Creatinine (0.66-1.25) mg/dL Estimated GFR ML/MIN Glucose (74-106) mg/dL Lactic Acid (0.4-2.0) Calcium (8.4-10.2) mg/dL Total Bilirubin (0.2-1.3) mg/dL AST (17-59) U/L ALT (0-50) U/L Alkaline Phosphatase (38-126) U/L Troponin I 0.058 H* 0.052 H* (0.000-0.034) ng/mL Serum Total Protein (6.3-8.2) g/dL Albumin (3.5-5.0) g/dL Prealbumin (17.6-36.0) mg/dL 05/30/23 Range/Units 04:14 WBC (4.0-10.5) x10^3/uL RBC (4.1-5.6) x10^6/uL Hgb (12.5-18.0) g/dL Hct (42-50) % MCV (78-100) fL MCH (26-32) pg MCHC (32-36) g/dL RDW (11.5-14.0) % Plt Count (150-450) x10^3/uL MPV (7.5-11.0) fL D-Dimer (0.0-0.50) mg/L Sodium 135 L (137-145) mmol/L Potassium 3.6 (3.5-5.1) mmol/L Chloride 96 L (98-107) mmol/L Carbon Dioxide 33 H (22-30) mmol/L Anion Gap 9.1 (5-15) MEQ/L BUN 17 (9-20) mg/dL Creatinine 1.25 (0.66-1.25) mg/dL Estimated GFR 62.0 ML/MIN Glucose 135 H (74-106) mg/dL Lactic Acid (0.4-2.0) Calcium 9.0 (8.4-10.2) mg/dL Total Bilirubin 0.40 (0.2-1.3) mg/dL AST 20 (17-59) U/L ALT 13 (0-50) U/L Alkaline Phosphatase 126 (38-126) U/L Troponin I (0.000-0.034) ng/mL Serum Total Protein 6.6 (6.3-8.2) g/dL Albumin 3.4 L (3.5-5.0) g/dL Prealbumin (17.6-36.0) mg/dL Radiology Exams: Radiology Procedures Category Date Time Status ABDOMEN AND PELVIS W/0 CONTRAS [CT] Stat Exams 05/29/23 04:23 Completed CHEST WITH CONTRAST [CT] Stat Exams 05/29/23 06:00 Completed HEAD WITHOUT CONTRAST [CT] Stat Exams 05/29/23 06:00 Completed Multi-Disciplinary Progress Notes: Multi-Disciplinary Progress Notes 05/30/23 12:53 Case Management Note by Miriam Roberson S/W DOROTHY AT [facility] [place]- SHE IS GOING TO FAX DC MED LIST FROM PATIENT'S DC THERE. SHE REPORTS AT DC THEY SEND IN 30 DAYS WORTH OF MEDS FOR PATIENT TO THEIR PHARMACY. SHE REPORTS PATIENT WAS SET UP WITH HOME OXYGEN THRU [facility] [place] FOR 4L/NC 25/10 Initialized on 05/30/23 12:53 - END OF NOTE 05/30/23 12:39 Case Management Note by Miriam Roberson PATIENT HAS BEEN SET UP WITH [facility]. THEY HAVE NOT OFFICIALLY STARTED SERVICES YET PATIENT WAS TAKEN BACK TO THE HOSPITAL SOON AFTER DC FROM REHAB FACILITY. THEY WERE NOTIFIED PATIENT HERE INPT. THEY WILL NEED NOTIFIED AT TIME OF DC AT [phone]. THEY WILL NEED FAXED THE DC INSTRUCTIONS, DC MED LIST AND DC SUMMARY TO [phone] Initialized on 05/30/23 12:39 - END OF NOTE Assessment/Plan (1) S/P CABG (coronary artery bypass graft) Current Visit: Yes Status: Acute Code(s): Z95.1 - PRESENCE OF AORTOCORONARY BYPASS GRAFT (2) CHF (congestive heart failure) Current Visit: Yes Status: Acute Code(s): I50.9 - HEART FAILURE, UNSPECIFIED (3) Elevated troponin I level Current Visit: Yes Status: Acute Code(s): R79.89 - OTHER SPECIFIED ABNORMAL FINDINGS OF BLOOD CHEMISTRY (4) Hypertensive urgency Current Visit: Yes Status: Acute Code(s): I16.0 - HYPERTENSIVE URGENCY (5) Pleural effusion Current Visit: Yes Status: Acute Code(s): J90 - PLEURAL EFFUSION, NOT ELSEWHERE CLASSIFIED (6) Pneumonia Current Visit: Yes Status: Acute Code(s): J18.9 - PNEUMONIA, UNSPECIFIED ORGANISM (7) Shortness of breath Current Visit: Yes Status: Acute Code(s): R06.02 - SHORTNESS OF BREATH (8) Vomiting Current Visit: Yes Status: Acute Code(s): R11.10 - VOMITING, UNSPECIFIED (9) Proteinuria Current Visit: Yes Status: Acute Code(s): R80.9 - PROTEINURIA, UNSPECIFIED (10) Pleural effusion Current Visit: Yes Status: Acute Code(s): J90 - PLEURAL EFFUSION, NOT ELSEWHERE CLASSIFIED (11) Smoker Current Visit: Yes Status: Chronic Code(s): F17.200 - NICOTINE DEPENDENCE, UNSPECIFIED, UNCOMPLICATED (12) Depression Current Visit: Yes Status: Chronic Assessment & Plan: (1) S/P CABG (coronary artery bypass graft) Current Visit: Yes Status: Acute Assessment & Plan: - Done at [facility] and competed rehab yesterday and sent home. - abd sites from chest tubes appear to be healing. 1 site has some purulent drainage. - pics in chart - left leg sites appear to be healing well - use hibiclens on affected areas, keep clean and dry. - Bactrian packet to affected areas - Continue plavix - needs [facility] OP- Cm to set up Code(s): Z95.1 - PRESENCE OF AORTOCORONARY BYPASS GRAFT (2) CHF (congestive heart failure) Current Visit: Yes Status: Acute Assessment & Plan: - exacerbation - TELE - BNP [id number] - Lasix 80 bid - 2lNC- @ baseline - Stop IVF -Continue metoprolol 05/30 - sxs improved - continue lasix Code(s): I50.9 - HEART FAILURE, UNSPECIFIED (3) Elevated troponin I level Current Visit: Yes Status: Acute Assessment & Plan: - Trop 0.061, 0.067 3rd trop pending - pt denies CP - Tele - demand ischemia from CHF exacerbation - EKG 05/30 - trops trended down - denies CP Code(s): R79.89 - OTHER SPECIFIED ABNORMAL FINDINGS OF BLOOD CHEMISTRY (4) Hypertensive urgency Current Visit: Yes Status: Acute Assessment & Plan: - labetalol gave in ER - restart home meds - pt has not had for maybe 2 days now. - BP on arrival to the floor 185/90 05/30 - BP stable with home meds- resolved Code(s): I16.0 - HYPERTENSIVE URGENCY (5) Pleural effusion Current Visit: Yes Status: Acute Assessment & Plan: - as seen on CT Code(s): J90 - PLEURAL EFFUSION, NOT ELSEWHERE CLASSIFIED (6) Pneumonia Current Visit: Yes Status: Acute Assessment & Plan: - CTA chest 225 IMPRESSION: 1. Possible filling defect in one segmental branch of the right upper lobe pulmonary arterial tree. 2. Mild resolution of the previously appreciated right upper lobar consolidative opacities. 3. Mild regression of the amount of left pleural effusion, considered to be minimal to mild as well as resolution of the left basal interlobular septal thickening (reflecting resolution of interstitial edema). 4. Minimal pericardial effusion. 5. 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 6. Bilateral centrilobular emphysematous changes with architextural distortion in the right hemithorax (post-surgery changes). - Ceftriaxone started in ER - Per CT Mild resolution of YULIANA consolidation - Continue antibiotics, steriods, nebs. - Lactic acid- 1.8 - therapeutic lovenox as PE not ruled out. Code(s): J18.9 - PNEUMONIA, UNSPECIFIED ORGANISM (7) Shortness of breath Current Visit: Yes Status: Acute Assessment & Plan: - On baseline O2 2lNC - 2:2 COPD, Pneumonia - D-Dimer pending Code(s): R06.02 - SHORTNESS OF BREATH (8) Vomiting Current Visit: Yes Status: Acute Assessment & Plan: - resolved since admission - zofran PRN Code(s): R11.10 - VOMITING, UNSPECIFIED (9) Proteinuria Current Visit: Yes Status: Acute Assessment & Plan: - 2:2 vomiting, recent surgery - IVF gave in ER - kidney function WNL 05/30 - F/u OP for further evaluation Code(s): R80.9 - PROTEINURIA, UNSPECIFIED (10) Pleural effusion Current Visit: Yes Status: Acute Assessment & Plan: - as seen on CT - IV lasix. Code(s): J90 - PLEURAL EFFUSION, NOT ELSEWHERE CLASSIFIED (11) Smoker Current Visit: Yes Status: Chronic Assessment & Plan: - advised cessation - refused nicotine patch Code(s): F17.200 - NICOTINE DEPENDENCE, UNSPECIFIED, UNCOMPLICATED (12) Depression Current Visit: Yes Status: Chronic Assessment & Plan: - continue home meds VTE: Lovenox PPI: pepcid Next of kin: Sister D/C plan: 2-3 days Code status: full Code(s): F32.A - DEPRESSION, UNSPECIFIED Code(s): F32.A - DEPRESSION, UNSPECIFIED (13) Elevated d-dimer Current Visit: Yes Status: Acute Assessment & Plan: - D-dimer 5.92 05/30 - discussed CTA results with radiology and asks for it to be reread to address if pt has PE.- pending updated results - Since inconclusive added therapeutic lovenox Code(s): R79.89 - OTHER SPECIFIED ABNORMAL FINDINGS OF BLOOD CHEMISTRY
[2023-05-30] MEDS: Sodium Chloride 3 ML UD NEBULES IH PRN (18:51)
[2023-05-31 05:15] LABS: Hematocrit 30.3 % (42-50); Hemoglobin 9.3 g/dL (12.5-18.0); Mean Cell Volume 94.4 fL (78-100); Mean Corpuscular Hgb Concent. 30.7 g/dL (32-36); Mean Platelet Volume 10.5 fL (7.5-11.0); Platelet Count 441 x10^3/uL (150-450); Red Blood Count 3.21 x10^6/uL (4.1-5.6); Red Cell Distribution Width 14.5 % (11.5-14.0); White Blood Count 8.2 x10^3/uL (4.0-10.5)
[2023-05-31 05:33] LABS: ALBUMIN 3.4 g/dL (3.5-5.0); BILIRUBIN,TOTAL 0.3 mg/dL (0.2-1.3); Creatinine 1 1.59 mg/dL (0.66-1.25); EST GLOMERULAR FILTRATION RATE 46.4 ML/MIN; Potassium 3.8 mmol/L (3.5-5.1); Total Protein 6.4 g/dL (6.3-8.2)
[2023-05-31] MEDS: Sodium Chloride 0.9% 1000 ML 1,000 ML IV SCH (09:08)
[2023-05-31] MEDS: Lasix 40 MG PO SCH (09:11)
[2023-05-31] MEDS: ENOXAPARIN SODIUM SQ SCH (09:25)
[2023-05-31] MEDS ORDERED: ENOXAPARIN SODIUM SQ SCH (10:00)
--- NOTE | 2023-05-31 12:32 | PCM.NOTE ---
Date and Time: 05/31/23 1216 Subjective Assessment: 05/29/23 is a 68 year old male with PMHX of COPD, HTN, hyperlipidemia, cirrhosis, depression, lung cancer, 1 ppd smoker, AAA, and recent CABG at [facility]. He present today by private vehicle from home with complaints of vomiting x 3 and abdominal pain. He explained this has since resolved. He also has complaints of fatigue, possible fever, chills, cough, shortness of breath, headache, and body aches. Patient was a resident at the [facility] rehabbing post open heart surgery. He went home yesterday with oxygen, 2lNC. He was seen here in our emergency department on 05/04/2023 and was transferred out to [facility] facility secondary to significant shortness of breath and very high troponin level. He has a well- healed midline sternotomy scar. Because of his abdominal pain symptoms and headache as well as body aches, patient took an oxycodone 7.5/325 mg at 2 this morning. On admission. He continues to have chills, elevated ALFREDO of 191/78, and generalized sensation of not feeling well. He admits to not taking his home meds with unknown date of last dose of Bp meds. Since he was d/c'd from rehab yesterday most likely did get them there. Will restart BP meds. Stop IV fluids. He was given several doses of labetalol in ER for BP. Given lasix, and antibiotics in ER. Will continue lasix for CHF, antibiotics for pneumonia, lovenox for possible PE. He denies SOB, chest pain, Abd. abd. pain, N/V/D at this time. 05/30/23 Pt sitting up in bed. He is feeling much better today. Blood pressure is well controlled with home meds. SOB has improved an on baseline oxygen at 2lNC. Continues to have crackles in BLLL. Will continue Lasix. Possible d/c tomorrow. Discussed with case management, pt will need HHC. Pt denies CP, abd. pain, N/V/D. 05/31 Pt resting in bed. Lung sounds have improved and he is feeling much better overall. He does have some CROW 2:2 high doses of IV lasix gave for CHF. gentle hydration started. If CROW improved can d/c tomorrow. Changed lasix back to home PO dosing. BP stable. He is on baseline O2 at 2lNC. [facility] to come to pt's home tomorrow. Pt denies any further concerns at this time. - Review of Systems Constitutional: No Fever, No Chills Eyes: No Symptoms Ears, Nose, & Throat: No Symptoms Respiratory: No Cough, No Short Of Breath Cardiac: No Chest Pain, No Edema, No Syncope Abdominal/Gastrointestinal: No Abdominal Pain, No Nausea, No Vomiting, No Diarrhea Genitourinary Symptoms: No Dysuria Musculoskeletal: No Back Pain, No Neck Pain Skin: No Rash Neurological: No Dizziness, No Focal Weakness, No Sensory Changes Psychological: No Symptoms Endocrine: No Symptoms Hematologic/Lymphatic: No Symptoms Immunological/Allergic: No Symptoms Objective Exam General Appearance: no apparent distress, alert Neurologic Exam: alert, oriented x 3, cooperative, normal mood/affect, nml cere bellar function, sensation nml, No motor deficits Skin Exam: normal color, warm, dry Wound Assessment: Skin/Wound Assessment Wound/Incision Assessment Start: 05/29/23 13:05 Text: Status: Active Freq: Q6H Protocol: Document 05/31/23 08:00 AR (Rec: 05/31/23 09:41 AR [id number]) Wound/Incision Assessment Right Upper Medial Thigh Wound Assessment Shift Assessment Wound Type Skin Tear Drainage Amount None General Appearance Open to air Comment 3 SKIN TEARS NOTED, TEGADRM APPLIED TO ONE Right Upper Anterior Thigh Wound Assessment Shift Assessment Wound Type Incision Drainage Amount None General Appearance Open to air,Clean/Dry Comment 4 INCISIONS FROM PREVIOUS OPEN HEART SURGERY, SCABBED OVER, NO DRAINAGE NOTED Upper Abdomen Wound Assessment Shift Assessment Wound Type Incision Drainage Amount None General Appearance Open to air Comment 3 INCISION SITES FROM PREVIOUS CHEST TUBES Wound Photo Photo Taken Yes Eye Exam: PERRL, EOMI, eyes nml inspection Ears, Nose, Throat Exam: normal ENT inspection, pharynx normal, moist mucous membranes Neck Exam: normal inspection, non-tender, supple, full range of motion Respiratory Exam: normal breath sounds, lungs clear, No respiratory distress Cardiovascular Exam: regular rate/rhythm, normal heart sounds Gastrointestinal/Abdomen Exam: soft, No tenderness, No mass Extremity Exam: normal inspection, normal range of motion Back Exam: normal inspection, normal range of motion, No CVA tenderness, No vertebral tenderness Male Genitalia Exam: deferred Rectal Exam: deferred OBJECTIVE DATA Vital Signs: Vital Signs - 24 hr Temp Pulse Resp BP Pulse Ox 05/31/23 08:00 98 F 70 18 173/80 98 05/31/23 07:07 60 16 97 05/31/23 04:00 97.9 F 62 16 117/56 97 05/30/23 23:18 97.5 F 66 16 131/63 96 05/30/23 19:01 98.2 F 64 16 100/54 99 05/30/23 18:50 63 18 99 05/30/23 16:00 98.2 F 62 18 121/58 98 Pain Assessment - Last Documented Pain Intensity 7 Pain Scale Used 0-10 Pain Scale Intake and Output: Intake & Output 05/29/23 05/30/23 05/31/23 06/01/23 11:59 11:59 11:59 11:59 Intake Total 860 1160 1701 Output Total 1225 300 Balance -365 1160 1401 Weight 63.5 kg 63.3 kg Lab Results: Lab Results-Last 24 Hours 05/31/23 05/31/23 Range/Units 04:40 04:40 WBC 8.2 (4.0-10.5) x10^3/uL RBC 3.21 L (4.1-5.6) x10^6/uL Hgb 9.3 L (12.5-18.0) g/dL Hct 30.3 L (42-50) % MCV 94.4 (78-100) fL MCH 29.0 (26-32) pg MCHC 30.7 L (32-36) g/dL RDW 14.5 H (11.5-14.0) % Plt Count 441 (150-450) x10^3/uL MPV 10.5 (7.5-11.0) fL Sodium 138 (137-145) mmol/L Potassium 3.8 (3.5-5.1) mmol/L Chloride 96 L (98-107) mmol/L Carbon Dioxide 35 H (22-30) mmol/L Anion Gap 10.0 (5-15) MEQ/L BUN 28 H (9-20) mg/dL Creatinine 1.59 H (0.66-1.25) mg/dL Estimated GFR 46.4 ML/MIN Glucose 139 H (74-106) mg/dL Calcium 9.0 (8.4-10.2) mg/dL Total Bilirubin 0.30 (0.2-1.3) mg/dL AST 21 (17-59) U/L ALT 14 (0-50) U/L Alkaline Phosphatase 112 (38-126) U/L Serum Total Protein 6.4 (6.3-8.2) g/dL Albumin 3.4 L (3.5-5.0) g/dL Multi-Disciplinary Progress Notes: Multi-Disciplinary Progress Notes 05/31/23 11:53 Case Management Note by Indu Cooper S/W WITH JESS AT [facility] TO REQUEST A SAME DAY ADMIT FOR PATIENT WHEN DISCHARGED. WILL NEED TO NOTIFIY AT [place] AND SHE STATES SAME DAY ADMIT CAN HAPPEN. PATIENT PLANS TO RETURN HOME WITH SISTER, CARLOS AND [facility] [place]. Initialized on 05/31/23 11:53 - END OF NOTE 05/30/23 12:53 Case Management Note by Miriam Roberson S/W [facility]- SHE IS GOING TO FAX DC MED LIST FROM PATIENT'S DC THERE. SHE REPORTS AT [place] THEY SEND IN 30 DAYS WORTH OF MEDS FOR PATIENT TO THEIR PHARMACY. SHE REPORTS PATIENT WAS SET UP WITH HOME OXYGEN THRU [facility] [place] FOR 4L/NC 25/10 Initialized on 05/30/23 12:53 - END OF NOTE 05/30/23 12:39 Case Management Note by Miriam Roberson PATIENT HAS BEEN SET UP WITH [facility]. THEY HAVE NOT OFFICIALLY STARTED SERVICES YET PATIENT WAS TAKEN BACK TO THE HOSPITAL SOON AFTER DC FROM REHAB FACILITY. THEY WERE NOTIFIED PATIENT HERE INPT. THEY WILL NEED NOTIFIED AT TIME OF DC AT [phone]. THEY WILL NEED FAXED THE DC INSTRUCTIONS, DC MED LIST AND DC SUMMARY TO [phone] Initialized on 05/30/23 12:39 - END OF NOTE Assessment/Plan (1) S/P CABG (coronary artery bypass graft) Current Visit: Yes Status: Acute Code(s): Z95.1 - PRESENCE OF AORTOCORONARY BYPASS GRAFT (2) CHF (congestive heart failure) Current Visit: Yes Status: Acute Code(s): I50.9 - HEART FAILURE, UNSPECIFIED (3) Elevated troponin I level Current Visit: Yes Status: Acute Code(s): R79.89 - OTHER SPECIFIED ABNORMAL FINDINGS OF BLOOD CHEMISTRY (4) Hypertensive urgency Current Visit: Yes Status: Acute Code(s): I16.0 - HYPERTENSIVE URGENCY (5) Pleural effusion Current Visit: Yes Status: Acute Code(s): J90 - PLEURAL EFFUSION, NOT ELSEWHERE CLASSIFIED (6) Pneumonia Current Visit: Yes Status: Acute Code(s): J18.9 - PNEUMONIA, UNSPECIFIED ORGANISM (7) Shortness of breath Current Visit: Yes Status: Acute Code(s): R06.02 - SHORTNESS OF BREATH (8) Vomiting Current Visit: Yes Status: Acute Code(s): R11.10 - VOMITING, UNSPECIFIED (9) Proteinuria Current Visit: Yes Status: Acute Code(s): R80.9 - PROTEINURIA, UNSPECIFIED (10) Pleural effusion Current Visit: Yes Status: Acute Code(s): J90 - PLEURAL EFFUSION, NOT ELSEWHERE CLASSIFIED (11) Smoker Current Visit: Yes Status: Chronic Code(s): F17.200 - NICOTINE DEPENDENCE, UNSPECIFIED, UNCOMPLICATED (12) Depression Current Visit: Yes Status: Chronic Code(s): F32.A - DEPRESSION, UNSPECIFIED (13) Elevated d-dimer Current Visit: Yes Status: Acute Assessment & Plan: (1) S/P CABG (coronary artery bypass graft) Current Visit: Yes Status: Acute Assessment & Plan: - Done at [facility] and competed rehab yesterday and sent home. - abd sites from chest tubes appear to be healing. 1 site has some purulent drainage. - pics in chart - left leg sites appear to be healing well - use hibiclens on affected areas, keep clean and dry. - Bactrian packet to affected areas - Continue plavix - needs [facility] OP- Cm to set up 05/31 - [facility] set up will be at home tomorrow. Code(s): Z95.1 - PRESENCE OF AORTOCORONARY BYPASS GRAFT (2) CHF (congestive heart failure) Current Visit: Yes Status: Acute Assessment & Plan: - exacerbation - TELE - BNP 70023 - Lasix 80 bid - 2lNC- @ baseline - Stop IVF -Continue metoprolol 05/30 - sxs improved - continue lasix 05/31 - Lasix changed to PO home dosing - CROW 2:2 lasix IV Code(s): I50.9 - HEART FAILURE, UNSPECIFIED (3) Elevated troponin I level Current Visit: Yes Status: Acute Assessment & Plan: - Trop 0.061, 0.067 3rd trop pending - pt denies CP - Tele - demand ischemia from CHF exacerbation - EKG 05/30 - trops trended down - denies CP Code(s): R79.89 - OTHER SPECIFIED ABNORMAL FINDINGS OF BLOOD CHEMISTRY (4) Hypertensive urgency Current Visit: Yes Status: Acute Assessment & Plan: - labetalol gave in ER - restart home meds - pt has not had for maybe 2 days now. - BP on arrival to the floor 185/90 05/30 - BP stable with home meds- resolved Code(s): I16.0 - HYPERTENSIVE URGENCY (5) Pleural effusion Current Visit: Yes Status: Acute Assessment & Plan: - as seen on CT - error - dx on chart twice Code(s): J90 - PLEURAL EFFUSION, NOT ELSEWHERE CLASSIFIED (6) Pneumonia Current Visit: Yes Status: Acute Assessment & Plan: - CTA chest 225 IMPRESSION: 1. Possible filling defect in one segmental branch of the right upper lobe pulmonary arterial tree. 2. Mild resolution of the previously appreciated right upper lobar consolidative opacities. 3. Mild regression of the amount of left pleural effusion, considered to be minimal to mild as well as resolution of the left basal interlobular septal thickening (reflecting resolution of interstitial edema). 4. Minimal pericardial effusion. 5. 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 6. Bilateral centrilobular emphysematous changes with architextural distortion in the right hemithorax (post-surgery changes). - Ceftriaxone started in ER - Per CT Mild resolution of YULIANA consolidation - Continue antibiotics, steriods, nebs. - Lactic acid- 1.8 05/31 - sxs improved - On baseline 2lNC - lungs clear Code(s): J18.9 - PNEUMONIA, UNSPECIFIED ORGANISM (7) Shortness of breath Current Visit: Yes Status: Acute Assessment & Plan: - On baseline O2 2lNC - 2:2 COPD, Pneumonia - D-Dimer 05/31 - resolved Code(s): R06.02 - SHORTNESS OF BREATH (8) Vomiting Current Visit: Yes Status: Acute Assessment & Plan: - resolved since admission - zofran PRN Code(s): R11.10 - VOMITING, UNSPECIFIED (9) Proteinuria Current Visit: Yes Status: Acute Assessment & Plan: - 2:2 vomiting, recent surgery - IVF gave in ER - kidney function WNL 05/30 - F/u OP for further evaluation Code(s): R80.9 - PROTEINURIA, UNSPECIFIED (10) Pleural effusion Current Visit: Yes Status: Acute Assessment & Plan: - as seen on CT - IV lasix. 05/31 - Lasix changed to PO home dosing Code(s): J90 - PLEURAL EFFUSION, NOT ELSEWHERE CLASSIFIED (11) Smoker Current Visit: Yes Status: Chronic Assessment & Plan: - advised cessation - refused nicotine patch Code(s): F17.200 - NICOTINE DEPENDENCE, UNSPECIFIED, UNCOMPLICATED (12) Depression Current Visit: Yes Status: Chronic Assessment & Plan: - continue home meds Code(s): F32.A - DEPRESSION, UNSPECIFIED (13) Elevated d-dimer Current Visit: Yes Status: Acute Assessment & Plan: - D-dimer 5.92 05/30 - discussed CTA results with radiology and asked for it to be reread to address if pt has PE.- pending updated results - Since inconclusive added therapeutic lovenox 05/31 - CT results discussed with radiology who read initial report. He explained no PE seen. - Lovenox dosing changed to daily. Code(s): R79.89 - OTHER SPECIFIED ABNORMAL FINDINGS OF BLOOD CHEMISTRY VTE: Lovenox PPI: pepcid Next of kin: Sister D/C plan: 2-3 days Code status: full Code(s): R79.89 - OTHER SPECIFIED ABNORMAL FINDINGS OF BLOOD CHEMISTRY (14) CROW (acute kidney injury) Current Visit: Yes Status: Acute Assessment & Plan: - 2:2 lasix - gentle hydration IVF - recheck BMP this afternoon and in AM Code(s): N17.9 - ACUTE KIDNEY FAILURE, UNSPECIFIED
[2023-05-31 12:53] LABS: ANION GAP 8.8 MEQ/L (5-15); Calcium 9.2 mg/dL (8.4-10.2); Creatinine 1 1.53 mg/dL (0.66-1.25); EST GLOMERULAR FILTRATION RATE 48.6 ML/MIN
[2023-06-01 05:27] LABS: Hematocrit 29.6 % (42-50); Mean Cell Volume 96.7 fL (78-100); Mean Corpuscular Hemoglobin 29.4 pg (26-32); Mean Corpuscular Hgb Concent. 30.4 g/dL (32-36); Mean Platelet Volume 10.3 fL (7.5-11.0); Platelet Count 373 x10^3/uL (150-450); Red Blood Count 3.06 x10^6/uL (4.1-5.6); Red Cell Distribution Width 14.5 % (11.5-14.0); White Blood Count 7.7 x10^3/uL (4.0-10.5)
[2023-06-01 06:33] LABS: ANION GAP 9.4 MEQ/L (5-15); Calcium 8.7 mg/dL (8.4-10.2); Creatinine 1 1.4 mg/dL (0.66-1.25); EST GLOMERULAR FILTRATION RATE 54.1 ML/MIN
[2023-06-01 07:34] VITALS: O2SAT 100
--- NOTE | 2023-06-01 09:22 | PCM.DS ---
Discharge Summary Date of Admission: 05/29/23 11:34 Date of Discharge: 06/01/23 Admitting Physician: WALESKA BAUER MD Primary Care Provider: LOULOU BOLAND Allergies Allergies morphine Allergy (Verified 05/29/23 03:04) Hospital Summary - Hospital Course Hospital Course: 05/29/23 is a 68 year old male with PMHX of COPD, HTN, hyperlipidemia, c irrhosis, depression, lung cancer, 1 ppd smoker, AAA, and recent CABG at [facility]. He present today by private vehicle from home with complaints of vomiting x 3 and abdominal pain. He explained this has since resolved. He also has complaints of fatigue, possible fever, chills, cough, shortness of breath, headache, and body aches. Patient was a resident at the [facility] rehabbing post open heart surgery. He went home yesterday with oxygen, 2lNC. He was seen here in our emergency department on 05/04/2023 and was transferred out to [facility] facility secondary to significant shortness of breath and very high troponin level. He has a well- healed midline sternotomy scar. Because of his abdominal pain symptoms and headache as well as body aches, patient took an oxycodone 7.5/325 mg at 2 this morning. On admission. He continues to have chills, elevated ALFREDO of 191/78, and generalized sensation of not feeling well. He admits to not taking his home meds with unknown date of last dose of Bp meds. Since he was d/c'd from rehab yesterday most likely did get them there. Will restart BP meds. Stop IV fluids. He was given several doses of labetalol in ER for BP. Given lasix, and antibiotics in ER. Will continue lasix for CHF, antibiotics for pneumonia, lovenox for possible PE. He denies SOB, chest pain, Abd. abd. pain, N/V/D at this time. 05/30/23 Pt sitting up in bed. He is feeling much better today. Blood pressure is well controlled with home meds. SOB has improved an on baseline oxygen at 2lNC. Continues to have crackles in BLLL. Will continue Lasix. Possible d/c tomorrow. Discussed with case management, pt will need HHC. Pt denies CP, abd. pain, N/V/D. 05/31 Pt resting in bed. Lung sounds have improved and he is feeling much better overall. He does have some CROW 2:2 high doses of IV lasix gave for CHF. gentle hydration started. If CROW improved can d/c tomorrow. Changed lasix back to home PO dosing. BP stable. He is on baseline O2 at 2lNC. C to come to pt's home tomorrow. Pt denies any further concerns at this time. 06/01 Pt resting in bed. He explains he feels fine and would like to go home. CROW improved. HH set up to come to home today. He is on BL O2 at 2lNC. He denies any further concerns at this time. Will d/c home with antibiotics, and steroids. - Vitals & Intake/Output Vital Signs: Vital Signs Temperature 97.3 F 06/01/23 07:34 Pulse Rate 57 L 06/01/23 07:34 Respiratory Rate 17 06/01/23 07:34 Blood Pressure 154/88 06/01/23 07:34 O2 Sat by Pulse Oximetry 100 06/01/23 07:34 Intake & Output: Intake & Output 05/29/23 05/30/23 05/31/23 06/01/23 11:59 11:59 11:59 11:59 Intake Total 860 1160 1701 2553 Output Total 1225 300 600 Balance -365 1160 1401 1953 Weight 63.5 kg 63.3 kg 63.8 kg - Lab Result Diagrams: 06/01/23 04:34 06/01/23 04:34 Lab Results-Last 24 Hrs: Lab Results-Last 24 Hours 05/31/23 06/01/23 06/01/23 Range/Units 12:32 04:34 04:34 WBC 7.7 (4.0-10.5) x10^3/uL RBC 3.06 L (4.1-5.6) x10^6/uL Hgb 9.0 L (12.5-18.0) g/dL Hct 29.6 L (42-50) % MCV 96.7 (78-100) fL MCH 29.4 (26-32) pg MCHC 30.4 L (32-36) g/dL RDW 14.5 H (11.5-14.0) % Plt Count 373 (150-450) x10^3/uL MPV 10.3 (7.5-11.0) fL Sodium 140 137 (137-145) mmol/L Potassium 5.0 D 4.0 (3.5-5.1) mmol/L Chloride 99 100 (98-107) mmol/L Carbon Dioxide 37 H 32 H (22-30) mmol/L Anion Gap 8.8 9.4 (5-15) MEQ/L BUN 30 H 30 H (9-20) mg/dL Creatinine 1.53 H 1.40 H (0.66-1.25) mg/dL Estimated GFR 48.6 54.1 ML/MIN Glucose 118 H 133 H (74-106) mg/dL Calcium 9.2 8.7 (8.4-10.2) mg/dL Micro Results-Entire Visit: Microbiology 05/30/23 08:28 Blood Culture - Preliminary Blood 05/30/23 08:35 Blood Culture - Preliminary Blood - Procedures and Test Procedures and Tests throughout Hospitalization: Therapy Orders & Screens 05/29/23 12:13 EKG STAT Comment: Diagnosis: SOBm CHF, HTN urgency 05/29/23 12:53 Respiratory Therapy Assessment DAILY Comment: Diagnosis: SOB, CHF, HTN urgency 05/29/23 13:05 OT Screen per Nursing Assess ONCE Comment: Protocol Order Physician Instructions: Greater than 3 points order OT Admission Screening Reason For Exam: Triggered on Admission Diagnosis: SOB, CHF, HTN urgency Open Wound/Cellutlitis/Pressure Ulcers: Yes Acute Fx/ORIF/Change in wt bearing status: No Severe MUSCULOSKELETAL pain: No ADL Dysfunction: No Acute CVA w/Hemiparesis/Hemiplegia: No Decreased Functional Mobility/Strength: No Sprain/Strain: No Acute Post-op Mobility Dysfunction: No Total Points: 5 PT Screen per Nursing Assess ONCE Comment: Protocol Order Physician Instructions: Greater than 3 points order PT Admission Screenin Reason For Exam: Triggered on Admission Diagnosis: SOB, CHF, HTN urgency Open Wound/Cellutlitis/Pressure Ulcers: Yes Acute Fx/ORIF/Change in wt bearing status: No Severe MUSCULOSKELETAL pain: No ADL Dysfunction: No Acute CVA w/Hemiparesis/Hemiplegia: No Decreased Functional Mobility/Strength: No Sprain/Strain: No Acute Post-op Mobility Dysfunction: No Total Points: 5 RT Screen per Nursing Assess ONCE Comment: Protocol Order Physician Instructions: Greater than 3 points order RT Admission Screen Reason For Exam: Triggered on Admission Diagnosis: SOB, CHF, HTN urgency Diagnosis: SOB, CHF, HTN urgency Pneumonia: Yes Home O2: Yes Asthma: No CHF: Yes Home CPAP/BIPAP: No Home Nebs/MDI: No Total Points: 11 ST Screen per Nursing Assess ONCE Comment: Protocol Order Physician Instructions: Greater than [address] Admission Screening Reason For Exam: Triggered on Admission Diagnosis: SOB, CHF, HTN urgency CVA/Dyshpagia/Aphasia: No Cognitive Deficits: No Dehydration/Nutrition Deficit: No Reflux: No Oral-Motor Difficulties: No Pneumonia: Yes Jail Resident: No Total Points: 5 05/29/23 19:33 Oxygen Nasal Cannula 2 lpm Comment: Diagnosis: pneumonia Discharge Exam General Appearance: no apparent distress, alert Neurologic Exam: alert, oriented x 3, cooperative, normal mood/affect, nml cerebellar function, sensation nml, No motor deficits Eye Exam: PERRL, EOMI, eyes nml inspection Ears, Nose, Throat Exam: normal ENT inspection, pharynx normal, moist mucous mem branes Neck Exam: normal inspection, non-tender, supple, full range of motion Respiratory Exam: normal breath sounds, lungs clear, No respiratory distress Cardiovascular Exam: regular rate/rhythm, normal heart sounds Gastrointestinal/Abdomen Exam: soft, No tenderness, No mass Male Genitalia Exam: deferred Rectal Exam: deferred Back Exam: normal inspection, normal range of motion, No CVA tenderness, No vertebral tenderness Extremity Exam: normal inspection, normal range of motion Skin Exam: normal color, warm, dry Wound Assessment: Skin/Wound Assessment Wound/Incision Assessment Start: 05/29/23 13:05 Text: Status: Active Freq: Q6H Protocol: Document 06/01/23 08:00 AR (Rec: 06/01/23 08:01 AR [id number]) Wound/Incision Assessment Right Upper Medial Thigh Wound Assessment Shift Assessment Wound Type Skin Tear Drainage Amount None General Appearance Open to air Comment 3 skin tears, 2 open to air, [address] Right Upper Anterior Thigh Wound Assessment Shift Assessment Wound Type Incision Drainage Amount None General Appearance Open to air,Clean/Dry Comment 4 INCISIONS FROM PREVIOUS OPEN HEART SURGERY, SCABBED OVER, NO DRAINAGE NOTED Upper Abdomen Wound Assessment Shift Assessment Wound Type Incision Drainage Amount None General Appearance Open to air Comment 3 INCISION SITES FROM PREVIOUS CHEST TUBES Wound Photo Comment: photos in paper chart Final Diagnosis/Problem List - Final Discharge Diagnosis/Problem (1) S/P CABG (coronary artery bypass graft) Current Visit: Yes Status: Acute Code(s): Z95.1 - PRESENCE OF AORTOCORONARY BYPASS GRAFT (2) CHF (congestive heart failure) Current Visit: Yes Status: Acute Code(s): I50.9 - HEART FAILURE, UNSPECIFIED (3) Elevated troponin I level Current Visit: Yes Status: Acute Code(s): R79.89 - OTHER SPECIFIED ABNORMAL FINDINGS OF BLOOD CHEMISTRY (4) Hypertensive urgency Current Visit: Yes Status: Acute Code(s): I16.0 - HYPERTENSIVE URGENCY (5) Pleural effusion Current Visit: Yes Status: Acute Code(s): J90 - PLEURAL EFFUSION, NOT ELSEWHERE CLASSIFIED (6) Pneumonia Current Visit: Yes Status: Acute Code(s): J18.9 - PNEUMONIA, UNSPECIFIED ORGANISM (7) Shortness of breath Current Visit: Yes Status: Acute Code(s): R06.02 - SHORTNESS OF BREATH (8) Vomiting Current Visit: Yes Status: Acute Code(s): R11.10 - VOMITING, UNSPECIFIED (9) Proteinuria Current Visit: Yes Status: Acute Code(s): R80.9 - PROTEINURIA, UNSPECIFIED (10) Pleural effusion Current Visit: Yes Status: Acute Code(s): J90 - PLEURAL EFFUSION, NOT ELSEWHERE CLASSIFIED (11) Smoker Current Visit: Yes Status: Chronic Code(s): F17.200 - NICOTINE DEPENDENCE, UNSPECIFIED, UNCOMPLICATED (12) Depression Current Visit: Yes Status: Chronic Code(s): F32.A - DEPRESSION, UNSPECIFIED (13) Elevated d-dimer Current Visit: Yes Status: Acute Code(s): R79.89 - OTHER SPECIFIED ABNORMAL FINDINGS OF BLOOD CHEMISTRY (14) CROW (acute kidney injury) Current Visit: Yes Status: Acute Assessment & Plan: (1) S/P CABG (coronary artery bypass graft) Current Visit: Yes Status: Acute Assessment & Plan: - Done at [facility] and competed rehab yesterday and sent home. - abd sites from chest tubes appear to be healing. 1 site has some purulent drainage. - pics in chart - left leg sites appear to be healing well - use hibiclens on affected areas, keep clean and dry. - Bactrian packet to affected areas - Continue plavix - needs C OP- Cm to set up 05/31 - HHC set up will be at home tomorrow. Code(s): Z95.1 - PRESENCE OF AORTOCORONARY BYPASS GRAFT (2) CHF (congestive heart failure) Current Visit: Yes Status: Acute Assessment & Plan: - exacerbation - TELE - BNP 60989 - Lasix 80 bid - 2lNC- @ baseline - Stop IVF -Continue metoprolol 05/30 - sxs improved - continue lasix 05/31 - Lasix changed to PO home dosing - CROW 2:2 lasix IV Code(s): I50.9 - HEART FAILURE, UNSPECIFIED (3) Elevated troponin I level Current Visit: Yes Status: Acute Assessment & Plan: - Trop 0.061, 0.067 3rd trop pending - pt denies CP - Tele - demand ischemia from CHF exacerbation - EKG 05/30 - trops trended down - denies CP Code(s): R79.89 - OTHER SPECIFIED ABNORMAL FINDINGS OF BLOOD CHEMISTRY (4) Hypertensive urgency Current Visit: Yes Status: Acute Assessment & Plan: - labetalol gave in ER - restart home meds - pt has not had for maybe 2 days now. - BP on arrival to the floor 185/90 05/30 - BP stable with home meds- resolved Code(s): I16.0 - HYPERTENSIVE URGENCY (5) Pleural effusion Current Visit: Yes Status: Acute Assessment & Plan: - as seen on CT - error - dx on chart twice Code(s): J90 - PLEURAL EFFUSION, NOT ELSEWHERE CLASSIFIED (6) Pneumonia Current Visit: Yes Status: Acute Assessment & Plan: - CTA chest 225 IMPRESSION: 1. Possible filling defect in one segmental branch of the right upper lobe pulmonary arterial tree. 2. Mild resolution of the previously appreciated right upper lobar consolidative opacities. 3. Mild regression of the amount of left pleural effusion, considered to be minimal to mild as well as resolution of the left basal interlobular septal thickening (reflecting resolution of interstitial edema). 4. Minimal pericardial effusion. 5. 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 6. Bilateral centrilobular emphysematous changes with architextural distortion in the right hemithorax (post-surgery changes). - Ceftriaxone started in ER - Per CT Mild resolution of YULIANA consolidation - Continue antibiotics, steroids, nebs. - Lactic acid- 1.8 05/31 - sxs improved - On baseline 2lNC - lungs clear 06/01 - d/c with antibiotics and steroids Code(s): J18.9 - PNEUMONIA, UNSPECIFIED ORGANISM (7) Shortness of breath Current Visit: Yes Status: Acute Assessment & Plan: - On baseline O2 2lNC - 2:2 COPD, Pneumonia - D-Dimer 05/31 - resolved - on baseline O2 Code(s): R06.02 - SHORTNESS OF BREATH (8) Vomiting Current Visit: Yes Status: Acute Assessment & Plan: - resolved since admission - zofran PRN Code(s): R11.10 - VOMITING, UNSPECIFIED (9) Proteinuria Current Visit: Yes Status: Acute Assessment & Plan: - 2:2 vomiting, recent surgery - IVF gave in ER - kidney function WNL 05/30 - F/u OP for further evaluation Code(s): R80.9 - PROTEINURIA, UNSPECIFIED (10) Pleural effusion Current Visit: Yes Status: Acute Assessment & Plan: - as seen on CT - IV lasix. 05/31 - Lasix changed to PO home dosing Code(s): J90 - PLEURAL EFFUSION, NOT ELSEWHERE CLASSIFIED (11) Smoker Current Visit: Yes Status: Chronic Assessment & Plan: - advised cessation - refused nicotine patch Code(s): F17.200 - NICOTINE DEPENDENCE, UNSPECIFIED, UNCOMPLICATED (12) Depression Current Visit: Yes Status: Chronic Assessment & Plan: - continue home meds Code(s): F32.A - DEPRESSION, UNSPECIFIED (13) Elevated d-dimer Current Visit: Yes Status: Acute Assessment & Plan: - D-dimer 5.92 05/30 - discussed CTA results with radiology and asked for it to be reread to address if pt has PE.- pending updated results - Since inconclusive added therapeutic lovenox 05/31 - CT results discussed with radiology who read initial report. He explained no PE seen. - Lovenox dosing changed to daily. Code(s): R79.89 - OTHER SPECIFIED ABNORMAL FINDINGS OF BLOOD CHEMISTRY (14) CROW (acute kidney injury) Current Visit: Yes Status: Acute Assessment & Plan: - 2:2 lasix - gentle hydration IVF 06/01 - labs improved Code(s): N17.9 - ACUTE KIDNEY FAILURE, UNSPECIFIED Code(s): N17.9 - ACUTE KIDNEY FAILURE, UNSPECIFIED - Discharge Discharge Date: 06/01/23 Disposition: HOME HEALTH SERVICE Condition: Stable Prescriptions: New Methylprednisolone Packet [Medrol Dosepack] 4 mg PO UD 6 Days #30 packet Doxycycline Hyclate 100 mg [Vibramycin 100 MG] 100 mg PO BID 5 Days #14 tab Continue Atorvastatin Calcium 40 mg PO DAILY Oxycodone HCl/Acetaminophen [Oxycodone-Acetaminophn 7.5-325] 1 tab PO Q6H PRN PRN PRN Reason: Pain Sertraline HCl [Zoloft] 100 mg PO HS Buspirone HCl 5 mg [Buspar 5 mg] 10 mg PO BID Trazodone HCl 50 mg [Desyrel 50 mg] 50 mg PO HS Albuterol Sulfate [Albuterol Sulfate Hfa] 2 puff PO Q6H PRN PRN Reason: Shortness Of Breath Acetaminophen 325 mg [Tylenol 325 mg] 650 mg PO Q6H PRN PRN PRN Reason: Pain Potassium Chloride [Klor-Con M20] 20 meq PO BIDAC Losartan Potassium 50 mg [Cozaar 50 MG] 50 mg PO BID Isosorbide Mononitrate 60 mg [Imdur 60MG] 60 mg PO DAILY Furosemide 40 mg [Lasix 40 MG] 40 mg PO BIDAC Famotidine 20 mg [Pepcid 20 MG] 20 mg PO BIDAC Clopidogrel Bisulfate [PLAVIX Tablet] 75 mg PO DAILY Amiodarone HCl 200 mg PO DAILY Metoprolol Tartrate 25 mg [Lopressor 25MG Tab] 25 mg PO BID Lisinopril 10 mg [Zestril 10 MG] 10 mg PO DAILY Gabapentin [Neurontin ] 300 mg PO BID Fenofibrate 54 mg PO DAILY Additional Instructions: [facility] AND THEY WILL CONTACT YOU TO ARRANCE A TIME TO COME SEE YOU. THEIR NUMBER IS [phone]. PLEASE STATEMENT PROCESSOR ALL MEDS FROM PHARMACY AT [place]. Follow up with: LOULOU BOLAND MD [Primary Care Provider] - 06/08/23 10:00 am (AT [place])
[2023-06-01 12:10] VITALS: BP 164/69; PULSE 61; RESP 16; TEMP 97.6
== END 2023-06-01 13:22 | disposition home health service (06) | DRG 291 ==
LOC: ED 02:22 → MED SURG 11:34
PROVIDERS: ADMIT Internal Medicine; ATTEND Internal Medicine
DX: I11.0 Hypertensive heart disease with heart failure (principal); J18.9 Pneumonia, unspecified organism; J90 Pleural effusion, not elsewhere classified; N17.9 Acute kidney failure, unspecified; I50.9 Heart failure, unspecified; R79.89 Other specified abnormal findings of blood chemistry; I16.0 Hypertensive urgency; R06.02 Shortness of breath; R11.10 Vomiting, unspecified; R80.9 Proteinuria, unspecified; F17.200 Nicotine dependence, unspecified, uncomplicated; F32.A Depression, unspecified; K74.60 Unspecified cirrhosis of liver; E78.5 Hyperlipidemia, unspecified; Z95.0 Presence of cardiac pacemaker; Z79.899 Other long term (current) drug therapy; Z20.828 Contact with and (suspected) exposure to other viral communicable diseases; Z85.118 Personal history of other malignant neoplasm of bronchus and lung; Z79.01 Long term (current) use of anticoagulants
CPT/HCPCS: 0241U; 36000; 36415; 70450; 71260; 74176; 80048; 80053; 81001; 82150; 83036; 83605; 83690; 83735; 83880; 84134; 84484; 85025; 85027; 85379; 86308; 87040; 93005; 94640; 94760; 96372; 96374; 96375; 96376; 99285; 99291; Q3014; J0696; J1650; J1940; J2175; J2405; J2543; J2920; A9270-GY; G0378

== ENCOUNTER 2023-06-07 16:17 | Emergency (ER) | payer MEDICARE ==
[2023-06-07 16:30] VITALS: TEMP 97.2
[2023-06-07 16:55] LABS: BASOPHIL % 0.3 % (0.0-0.4); Basophil (Absolute #) 0.04 x10^3/uL (0-0.4); Eosinophil % 0.1 % (0.00-5.0); Eosinophil (Absolute #) 0.01 x10^3/uL (0-0.5); Hematocrit 34.3 % (42-50); Hemoglobin 10.4 g/dL (12.5-18.0); IMMATURE GRAN # 0.15 x10^3u/L (0.00-0.03); IMMATURE GRAN % 1.1 % (0.00-0.4); Lymphocyte (Absolute #) 1.56 x10^3/uL (1.0-4.6); Lymphocytes % 11.3 % (24.0-44.0); Mean Cell Volume 96.9 fL (78-100); Mean Corpuscular Hemoglobin 29.4 pg (26-32); Mean Corpuscular Hgb Concent. 30.3 g/dL (32-36); Mean Platelet Volume 9.8 fL (7.5-11.0); Monocyte (Absolute #) 0.87 x10^3/uL (0.0-1.3); Monocytes % 6.3 % (0.0-12.0); Neutrophil % 80.9 % (36.0-66.0); Platelet Count 412 x10^3/uL (150-450); Red Blood Count 3.54 x10^6/uL (4.1-5.6); Red Cell Distribution Width 15.4 % (11.5-14.0); White Blood Count 13.8 x10^3/uL (4.0-10.5)
[2023-06-07] MEDS ORDERED: solu-CORTEF 100MG ONE (16:58)
[2023-06-07] MEDS ORDERED: Sodium Chloride 0.9% 500 ML 500 ML IV ONE (16:58)
--- NOTE | 2023-06-07 17:09 | ERPHSYRPT ---
- History of Present Illness Time Seen by Provider: 06/07/23 16:30 Source: patient Patient Subjective Stated Complaint: PT states "I had triple bypass two weeks ago and I had my nurse at home today and when she took my blood pressure it was low and they called the ambulance." Triage Nursing Assessment: Pt presented alert and oriented X 3, skin pwd. pt able to speak in clear slow sentences. 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 PT resting comfortably on the bed. Physician History: 68-year-old male presents to our ED for evaluation of hypotension. Patient states his home health nurse visited with him today. She checked his blood pressure observed to be low. Patient was complaining of some lightheadedness. Patient reports that he had triple bypass 2 [address] Alcaraz. Surgery was performed at [facility]. Patient denies chest pain. No nausea or vomiting no shortness of breath no diaphoresis. Vital stable. Sister at bedside. They voiced no other complaints or concerns at this time. Portions of this note were created with voice recognition technology. There may be grammatical, spelling, punctuation or sound alike errors Timing/Duration: today Severity: moderate Modifying Factors: Improves With: nothing Associated Symptoms: denies symptoms Allergies/Adverse Reactions: morphine Allergy (Verified 05/29/23 03:04) Home Medications: Acetaminophen 325 mg [Tylenol 325 mg] 650 mg PO Q6H PRN PRN 05/04/23 [History] Albuterol Sulfate [Albuterol Sulfate Hfa] 2 puff PO Q6H PRN 05/04/23 [History] Atorvastatin Calcium 40 mg PO DAILY 05/04/23 [History] Buspirone HCl 5 mg [Buspar 5 mg] 10 mg PO BID 05/04/23 [History] Oxycodone HCl/Acetaminophen [Oxycodone-Acetaminophn 7.5-325] 1 tab PO Q6H PRN PRN 05/04/23 [History] Sertraline HCl [Zoloft] 100 mg PO HS 05/04/23 [History] Trazodone HCl 50 mg [Desyrel 50 mg] 50 mg PO HS 05/04/23 [History] Amiodarone HCl 200 mg PO DAILY 05/29/23 [History] Clopidogrel Bisulfate [PLAVIX Tablet] 75 mg PO DAILY 05/29/23 [History] Famotidine 20 mg [Pepcid 20 MG] 20 mg PO BIDAC 05/29/23 [History] Fenofibrate 54 mg PO DAILY 05/29/23 [History] Furosemide 40 mg [Lasix 40 MG] 40 mg PO BIDAC 05/29/23 [History] Gabapentin [Neurontin ] 300 mg PO BID 05/29/23 [History] Isosorbide Mononitrate 60 mg [Imdur 60MG] 60 mg PO DAILY 05/29/23 [History] Lisinopril 10 mg [Zestril 10 MG] 10 mg PO DAILY 05/29/23 [History] Losartan Potassium 50 mg [Cozaar 50 MG] 50 mg PO BID 05/29/23 [History] Metoprolol Tartrate 25 mg [Lopressor 25MG Tab] 25 mg PO BID 05/29/23 [History] Potassium Chloride [Klor-Con M20] 20 meq PO BIDAC 05/29/23 [History] Hx Tetanus, Diphtheria Vaccination/Date Given: No Hx Influenza Vaccination/Date Given: Yes Hx Pneumococcal Vaccination/Date Given: No Immunizations Up to Date: No Travel Risk - International Travel Have you traveled outside of the country in past 3 weeks: No - Coronavirus Screening Are you exhibiting any of the following symptoms?: No Close contact with a COVID-19 positive Pt in past 14-21 Days: No - Vaccine Status Have you recieved a Covid-19 vaccination: Yes Allopathic Doctor: Unknown - Vaccination Dates Dates if Unknown: unknown - Review of Systems Constitutional: No Symptoms, No Fever, No Chills Eyes: No Symptoms Ears, Nose, & Throat: No Symptoms Respiratory: No Symptoms, No Cough, No Dyspnea Cardiac: No Symptoms, No Chest Pain, No Edema, No Syncope Abdominal/Gastrointestinal: No Symptoms, No Abdominal Pain, No Nausea, No Vomiting, No Diarrhea Genitourinary Symptoms: No Symptoms, No Dysuria Musculoskeletal: No Symptoms, No Back Pain, No Neck Pain Skin: No Symptoms, No Rash Neurological: No Symptoms, No Dizziness, No Focal Weakness, No Sensory Changes Psychological: No Symptoms Endocrine: No Symptoms Hematologic/Lymphatic: No Symptoms Immunological/Allergic: No Symptoms All Other Systems: Reviewed and Negative - Past Medical History Pertinent Past Medical History: Yes Neurological History: No Pertinent History ENT History: Cataracts Cardiac History: High Cholesterol, Hypertension, Myocardial Infarction ([place]) Respiratory History: COPD Endocrine Medical History: No Pertinent History Musculoskeletal History: Fractures GI Medical History: Cirrhosis History: No Pertinent History Psycho-Social History: Depression Male Reproductive Disorders: No Pertinent History Other Medical History: Right femur, abdominal aortic aneurysm, lung cancer - Past Surgical History Past Surgical History: Yes Neuro Surgical History: No Pertinent History Cardiac: CABG, Cardiac Stent Respiratory: Lobectomy Gastrointestinal: No Pertinent History Genitourinary: No Pertinent History Musculoskeletal: Orthopedic Surgery Male Surgical History: No Pertinent History Other Surgical History: right hip, left eye reconstruction. triple bypass - Social History Smoking Status: Current every day smoker How long have you smoked: 60 years Exposure to second hand smoke: No Drug Use: none Patient Lives Alone: No - Nursing Vital Signs Nursing Vital Signs: Initial Vital Signs Temperature 97.2 F 06/07/23 16:18 Pulse Rate 58 L 06/07/23 16:18 Respiratory Rate 20 06/07/23 16:18 Blood Pressure 84/45 06/07/23 16:18 O2 Sat by Pulse Oximetry 94 L 06/07/23 16:18 Pain Scale Pain Intensity 0 - Physical Exam General Appearance: no apparent distress, alert Eye Exam: PERRL/EOMI, eyes nml inspection Ears, Nose, Throat Exam: normal ENT inspection, TMs normal, pharynx normal, moist mucous membranes Neck Exam: normal inspection, non-tender, supple, full range of motion Respiratory Exam: normal breath sounds, lungs clear, airway intact, No respiratory distress Cardiovascular Exam: regular rate/rhythm, normal heart sounds, normal peripheral pulses Gastrointestinal/Abdomen Exam: soft, normal bowel sounds, No tenderness, No mass Back Exam: normal inspection, normal range of motion, No CVA tenderness, No vertebral tenderness Extremity Exam: normal inspection, normal range of motion, pelvis stable Neurologic Exam: alert, oriented x 3, cooperative, normal mood/affect, nml cerebellar function, nml station & gait, sensation nml, No motor deficits Skin Exam: normal color, warm, dry, No rash Lymphatic Exam: No adenopathy SpO2 Interpretation: normal SpO2: 99 O2 Delivery: Room Air - Course Nursing assessment & vital signs reviewed: Yes EKG Interpreted by Me: RATE (56), Sinus Rhythm, NORMAL AXIS, NORMAL INTERVALS Ordered Tests: Active Orders 24 hr Category Date Time Status Training And Development Head STAT Care 06/07/23 16:37 Completed EKG-ER Only STAT Care 06/07/23 16:36 Completed IV Insertion STAT Care 06/07/23 16:36 Completed Pulse Oximetry (ED) STAT Care 06/07/23 16:36 Completed CHEST 1 VIEW (PORTABLE) Stat Exams 06/07/23 20:53 Completed BLOOD CULTURE Stat Lab 06/07/23 17:30 Received CBC W DIFF Stat Lab 06/07/23 16:52 Completed CMP Stat Lab 06/07/23 16:52 Completed D-DIMER QUANTITATIVE Stat Lab 06/07/23 16:52 Completed Lactic Acid Stat Lab 06/07/23 17:00 Completed NT PRO BNPII Stat Lab 06/07/23 16:52 Completed TROPONIN Q4H Lab 06/07/23 16:52 Completed TROPONIN Q4H Lab 06/07/23 21:00 Completed Medication Summary Discontinued Medications Generic Name Dose Route Start Last Admin Trade Name Freq PRN Reason Stop Dose Admin Enoxaparin Sodium 30 mg 06/07/23 18:56 06/07/23 19:03 Enoxaparin Sodium 60 Mg/0.6 Ml Syringe SQ 06/07/23 18:57 Not Given STAT ONE Enoxaparin Sodium Confirm 06/07/23 18:58 Enoxaparin Sodium 80 Mg/0.8 Ml Syringe Administered 06/07/23 18:59 Dose 80 mg SQ .STK-MED ONE Enoxaparin Sodium 30 mg 06/07/23 19:01 06/07/23 19:02 Enoxaparin Sodium 80 Mg/0.8 Ml Syringe SQ 06/07/23 19:02 30 mg STAT ONE Administration Hydrocortisone Sodium Succinate 100 mg 06/07/23 16:51 06/07/23 17:20 Hydrocortisone Sod Succinate 100 Mg/Vial Vial IV 06/07/23 16:52 100 mg STAT ONE Administration Hydrocortisone Sodium Succinate Confirm 06/07/23 16:58 Hydrocortisone Sod Succinate 100 Mg/Vial Vial Administered 06/07/23 16:59 Dose 100 mg .ROUTE .STK-MED ONE Sodium Chloride 500 mls @ 500 mls/hr 06/07/23 16:44 06/07/23 18:34 Sodium Chloride 0.9% 500 Ml IV 06/07/23 17:43 Infused .Q1H ONE Infusion Sodium Chloride Confirm 06/07/23 16:58 Sodium Chloride 0.9% 500 Ml Administered 06/07/23 16:59 Dose 500 mls @ ud IV .STK-MED ONE Norepinephrine/Dextrose Confirm 06/07/23 17:20 Norepinephrine 8 Mg/250 Ml-D5w Administered 06/07/23 17:21 Dose 8 mg in 250 mls @ ud IV .STK-MED ONE Norepinephrine/Dextrose 8 mg in 250 mls @ 15 mls/hr 06/07/23 17:22 06/07/23 17:22 Norepinephrine 8 Mg/250 Ml-D5w IV 07/07/23 17:21 8 mcg/min .[id number] PRN 15 mls/hr HYPOTENSION Administration Protocol 8 MCG/MIN Piperacillin Sod/Tazobactam 100 mls @ 200 mls/hr 06/07/23 20:54 06/07/23 21: 47 Sod 3.375 gm/ Sodium Chloride IV 06/07/23 21:23 200 mls/hr STAT ONE Administration Sodium Chloride Confirm 06/07/23 21:34 Sodium Chloride 0.9% Administered 06/07/23 21:35 Dose 100 mls @ ud .ROUTE .STK-MED ONE Piperacillin Sod/Tazobactam Sod Confirm 06/07/23 21:33 Piperacillin/Tazobactam Sodium 3.375 Gm Vial Administered 06/07/23 21:34 Dose 3.375 gm IV .STK-MED ONE Lab/Rad Data: Laboratory Result Diagrams 06/07/23 16:52 06/07/23 16:52 Laboratory Results 06/07/23 06/07/23 06/07/23 Range/Units 21:00 17:34 17:00 WBC (4.0-10.5) x10^3/uL RBC (4.1-5.6) x10^6/uL Hgb (12.5-18.0) g/dL Hct (42-50) % MCV (78-100) fL MCH (26-32) pg MCHC (32-36) g/dL RDW (11.5-14.0) % Plt Count (150-450) x10^3/uL MPV (7.5-11.0) fL Gran % (36.0-66.0) % Immature Gran % (Auto) (0.00-0.4) % Nucleat RBC Rel Count (0.00-0.1) % Eos # (Auto) (0-0.5) x10^3/uL Immature Gran # (Auto) (0.00-0.03) x10^3u/L Absolute Lymphs (auto) (1.0-4.6) x10^3/uL Absolute Monos (auto) (0.0-1.3) x10^3/uL Absolute Nucleated RBC (0.00-0.01) x10^3u/L Lymphocytes % (24.0-44.0) % Monocytes % (0.0-12.0) % Eosinophils % (0.00-5.0) % Basophils % (0.0-0.4) % Absolute Granulocytes (1.4-6.9) x10^3/uL Basophils # (0-0.4) x10^3/uL D-Dimer (0.0-0.50) mg/L Sodium (135-145) mmol/L Potassium (3.5-5.1) mmol/L Chloride (98-107) mmol/L Carbon Dioxide (22-30) mmol/L Anion Gap (5-15) MEQ/L BUN (9-20) mg/dL Creatinine (0.66-1.25) mg/dL Estimated GFR ML/MIN Glucose (74-106) mg/dL Lactic Acid 0.8 (0.4-2.0) Calcium (8.4-10.2) mg/dL Total Bilirubin (0.2-1.3) mg/dL AST (17-59) U/L ALT (0-50) U/L Alkaline Phosphatase (38-126) U/L Troponin I 0.038 H* (0.000-0.034) ng/mL NT-Pro-B Natriuret Pep (<300) pg/mL Serum Total Protein (6.3-8.2) g/dL Albumin (3.5-5.0) g/dL Influenza Type A Ag NEGATIVE (NEGATIVE) Influenza Type B Ag NEGATIVE (NEGATIVE) RSV (PCR) NEGATIVE (NEGATIVE) SARS-CoV-2 (PCR) NEGATIVE (NEGATIVE) 06/07/23 06/07/23 06/07/23 Range/Units 16:52 16:52 16:52 WBC (4.0-10.5) x10^3/uL RBC (4.1-5.6) x10^6/uL Hgb (12.5-18.0) g/dL Hct (42-50) % MCV (78-100) fL MCH (26-32) pg MCHC (32-36) g/dL RDW (11.5-14.0) % Plt Count (150-450) x10^3/uL MPV (7.5-11.0) fL Gran % (36.0-66.0) % Immature Gran % (Auto) (0.00-0.4) % Nucleat RBC Rel Count (0.00-0.1) % Eos # (Auto) (0-0.5) x10^3/uL Immature Gran # (Auto) (0.00-0.03) x10^3u/L Absolute Lymphs (auto) (1.0-4.6) x10^3/uL Absolute Monos (auto) (0.0-1.3) x10^3/uL Absolute Nucleated RBC (0.00-0.01) x10^3u/L Lymphocytes % (24.0-44.0) % Monocytes % (0.0-12.0) % Eosinophils % (0.00-5.0) % Basophils % (0.0-0.4) % Absolute Granulocytes (1.4-6.9) x10^3/uL Basophils # (0-0.4) x10^3/uL D-Dimer 3.31 H* (0.0-0.50) mg/L Sodium 140 (135-145) mmol/L Potassium 5.4 H (3.5-5.1) mmol/L Chloride 103 (98-107) mmol/L Carbon Dioxide 29 (22-30) mmol/L Anion Gap 13.3 (5-15) MEQ/L BUN 77 H (9-20) mg/dL Creatinine 2.76 H (0.66-1.25) mg/dL Estimated GFR 24.0 ML/MIN Glucose 122 H (74-106) mg/dL Lactic Acid (0.4-2.0) Calcium 8.9 (8.4-10.2) mg/dL Total Bilirubin 0.30 (0.2-1.3) mg/dL AST 18 (17-59) U/L ALT 11 (0-50) U/L Alkaline Phosphatase 98 (38-126) U/L Troponin I 0.044 H* (0.000-0.034) ng/mL NT-Pro-B Natriuret Pep 2970 (<300) pg/mL Serum Total Protein 6.0 L (6.3-8.2) g/dL Albumin 3.4 L (3.5-5.0) g/dL Influenza Type A Ag (NEGATIVE) Influenza Type B Ag (NEGATIVE) RSV (PCR) (NEGATIVE) SARS-CoV-2 (PCR) (NEGATIVE) 06/07/23 Range/Units 16:52 WBC 13.8 H (4.0-10.5) x10^3/uL RBC 3.54 L (4.1-5.6) x10^6/uL Hgb 10.4 L (12.5-18.0) g/dL Hct 34.3 L (42-50) % MCV 96.9 (78-100) fL MCH 29.4 (26-32) pg MCHC 30.3 L (32-36) g/dL RDW 15.4 H (11.5-14.0) % Plt Count 412 (150-450) x10^3/uL MPV 9.8 (7.5-11.0) fL Gran % 80.9 H (36.0-66.0) % Immature Gran % (Auto) 1.1 H (0.00-0.4) % Nucleat RBC Rel Count 0.0 (0.00-0.1) % Eos # (Auto) 0.01 (0-0.5) x10^3/uL Immature Gran # (Auto) 0.15 H (0.00-0.03) x10^3u/L Absolute Lymphs (auto) 1.56 (1.0-4.6) x10^3/uL Absolute Monos (auto) 0.87 (0.0-1.3) x10^3/uL Absolute Nucleated RBC 0.00 (0.00-0.01) x10^3u/L Lymphocytes % 11.3 L (24.0-44.0) % Monocytes % 6.3 (0.0-12.0) % Eosinophils % 0.1 (0.00-5.0) % Basophils % 0.3 (0.0-0.4) % Absolute Granulocytes 11.20 H (1.4-6.9) x10^3/uL Basophils # 0.04 (0-0.4) x10^3/uL D-Dimer (0.0-0.50) mg/L Sodium (135-145) mmol/L Potassium (3.5-5.1) mmol/L Chloride (98-107) mmol/L Carbon Dioxide (22-30) mmol/L Anion Gap (5-15) MEQ/L BUN (9-20) mg/dL Creatinine (0.66-1.25) mg/dL Estimated GFR ML/MIN Glucose (74-106) mg/dL Lactic Acid (0.4-2.0) Calcium (8.4-10.2) mg/dL Total Bilirubin (0.2-1.3) mg/dL AST (17-59) U/L ALT (0-50) U/L Alkaline Phosphatase (38-126) U/L Troponin I (0.000-0.034) ng/mL NT-Pro-B Natriuret Pep (<300) pg/mL Serum Total Protein (6.3-8.2) g/dL Albumin (3.5-5.0) g/dL Influenza Type A Ag (NEGATIVE) Influenza Type B Ag (NEGATIVE) RSV (PCR) (NEGATIVE) SARS-CoV-2 (PCR) (NEGATIVE) - Progress Progress: improved Progress Note: Case discussed with Dr. aSdiq Dan who advised weight-based Lovenox adjusted to kidney function and transfer to [facility]. I discussed the case with him at 6:54 PM. 06/07/23 18:[address] Phipps ER physician at [facility] who declined transfer on the basis of nuclear medicine VQ scan unavailable at their facility. Our patient recently had surgery has a positive D-dimer. Due to kidney function we are not able to do a CTA chest. Patient received a renal based dose of Lovenox. 06/07/23 19:[address] Dan a second time. However this time he was to transfer patient to [facility]. He excepted transfer at 8:36 PM 06/07/23 20:[address] Melgar at 8:[address] Melgar accepts transfer. Chest x- ray pending. Dr. Melgar requested initiating antibiotics 06/07/23 20:56 68-year-old male presents to emergency department for evaluation of low blood pressure. 06/07/23 22:27 68-year-old male recent three-vessel CABG approximately 2 weeks ago presents to our ED for evaluation of hypotension. Patient received a liter of IV fluids no improvement in blood pressure. MAP was 55. Patient complained of some lightheadedness. No chest pain. No shortness of breath. Levophed initiated. Blood pressure normalized. Workup reveals leukocytosis of 13.8. Normocytic anemia of 10.4. D-dimer positive at 3.31. However due to compromised renal function acute on chronic renal injury we were unable to do CTA chest. Patient received weight-based renal dosed Lovenox instead. BNP 2970. Lungs clear. No Lasix initiated as patient's blood pressure is already compromised. Patient will be transferred to [facility] for higher level of care. Vital stable at time of transfer. Plan of care discussed with patient. He agrees to transfer to [facility] for further evaluation and treatment. Chest x-ray suggestive of bronchopneumonia with a pleural effusion. Zosyn administered Portions of this note were created with voice recognition technology. There may be grammatical, spelling, punctuation or sound alike errors Complexity problem addressed is high, threat to bodily function due to profound hypotension Critical care time is 6 hours. Immediate intervention indicated to prevent further deterioration. Vasopressors initiated for profound hypotension Complex of data reviewed and analyzed is extensive. Test ordered test reviewed. Results analyzed and correlated clinically with history and physical examination. Management discussed with several doctors as outlined above. Cardiology hospitalist and ER physician Risk of complication and or risk of morbidity/mortality of patient management is high. Patient requires hospitalization/transfer to higher level of care. Vital stable. Time spent to transfer patient is approximately 30 minutes. Plan of care established for shared decision making. No social determinants of health present impede follow-up. Portions of this note were created with voice recognition technology. There may be grammatical, spelling, punctuation or sound alike errors 06/07/23 22:32 06/07/23 22:59 Counseled pt/family regarding: lab results, diagnosis - Departure Departure Disposition: Transfer Clinical Impression: Hypotension, Acute renal injury, Elevated troponin, Elevated d-dimer, Bronchopneumonia, Pleural effusion Condition: Stable Critical Care Time: Yes Critical Care Time(excluding separately billable procedures): Critcal > 194 mins Referrals: LOULOU BOLAND MD [Primary Care Provider] - Follow up/PCP as directed
[2023-06-07] MEDS: Sodium Chloride 0.9% 500 ML 500 ML IV ONE (17:17)
[2023-06-07 17:18] LABS: ALBUMIN 3.4 g/dL (3.5-5.0); ANION GAP 13.3 MEQ/L (5-15); BILIRUBIN,TOTAL 0.3 mg/dL (0.2-1.3); Calcium 8.9 mg/dL (8.4-10.2); Creatinine 1 2.76 mg/dL (0.66-1.25); Potassium 5.4 mmol/L (3.5-5.1)
[2023-06-07] MEDS ORDERED: NOREPINEPHRINE 8 MG/250 ML-D5W 8 MG/250 ML PLAST..BAG IV ONE (17:20)
[2023-06-07] MEDS: solu-CORTEF 100MG IV ONE (17:20)
[2023-06-07] MEDS: NOREPINEPHRINE 8 MG/250 ML-D5W 8 MG/250 ML PLAST..BAG IV PRN (17:22)
[2023-06-07 18:20] LABS: INFLUENZA A NEGATIVE (NEGATIVE); INFLUENZA B NEGATIVE (NEGATIVE); RESPIRATORY SYNCTIAL VIRUS NEGATIVE (NEGATIVE); SARS-CoV-2 Xpert Express NEGATIVE (NEGATIVE)
[2023-06-07] MEDS ORDERED: ENOXAPARIN SODIUM SQ ONE (18:58)
[2023-06-07] MEDS: ENOXAPARIN SODIUM SQ ONE ×2 (19:02→19:03)
[2023-06-07] MEDS ORDERED: PIPERACILLIN/TAZOBACTAM IV ONE (21:33)
[2023-06-07] MEDS ORDERED: Sodium Chloride 0.9% 100 ML ONE (21:34)
[2023-06-07] MEDS: PIPERACILLIN/TAZOBACTAM 3.375 GM in Sodium Chloride 100ML MINI-BAG PLUS 100 ML IV ONE (21:47)
[2023-06-07 22:07] VITALS: RESP 15
[2023-06-07 22:15] VITALS: O2SAT 99
[2023-06-07 22:54] VITALS: BP 129/83; PULSE 87
--- NOTE | 2023-06-07 23:38 | XRAY ---
CLINICAL HISTORY: hypotension TECHNIQUE: Chest x-ray, frontal 1 view. COMPARISON: 05/29/2023 CT and 05/04/2023 CT. FINDINGS: Emphysematous lungs with prominent and coarse bronchial vascular markings. Bilateral reticulonodular densities noted in lower zones of both lungs. Fibrocystic shadows left mid-lower zone. NextFibrotic shadows right upper zone. Opaque right apex and the right lower zone could be due to pleural effusion/Pleural thickening. Obtuse right costophrenic angle could be due to mild pleural effusion/pleural thickening. Borderline enlarged heart size in this view. CABG sutures shadows. Atelectasis at right lower zone. IMPRESSION: 1. Bilateral reticulonodular densities in lower zones of both lungs, suggestive of bronchopneumonia. Please correlate clinically. Interval new findings. 2. Mild right pleural effusion. Stable 3. COPD/chronic bronchitis changes. Stable 4. Borderline heart size in this view. Stable. Electronically Signed by: Maryjo Armstrong MD. (06/07/2023 23:33:27 EST)
== END 2023-06-07 22:50 | disposition short-term general hospital (02) ==
LOC: ED 16:17
DX: J18.0 Bronchopneumonia, unspecified organism (principal); J91.8 Pleural effusion in other conditions classified elsewhere; I95.9 Hypotension, unspecified; N17.9 Acute kidney failure, unspecified; R77.8 Other specified abnormalities of plasma proteins; R79.1 Abnormal coagulation profile; R00.1 Bradycardia, unspecified; E78.5 Hyperlipidemia, unspecified; I10 Essential (primary) hypertension; Z79.891 Long term (current) use of opiate analgesic; Z79.02 Long term (current) use of antithrombotics/antiplatelets; Z79.899 Other long term (current) drug therapy; Z72.0 Tobacco use; Z20.828 Contact with and (suspected) exposure to other viral communicable diseases
CPT/HCPCS: 0241U; 36415; 71045; 80053; 83605; 83880; 84484; 85025; 85379; 87040; 93005; 93041; 94760; 96372; 96374; 99285; 99291; 99292; J1650; J1720

== ENCOUNTER 2023-06-28 15:52 | Emergency (ER) | payer MEDICARE ==
[2023-06-28 16:00] VITALS: TEMP 97.4
[2023-06-28 16:37] LABS: Absolute Neutrophil Ct (ANC) 7.12 x10^3/uL (1.4-6.9); BASOPHIL % 0.5 % (0.0-0.4); Basophil (Absolute #) 0.04 x10^3/uL (0-0.4); Eosinophil % 0.5 % (0.00-5.0); Eosinophil (Absolute #) 0.04 x10^3/uL (0-0.5); Hematocrit 33.2 % (42-50); Hemoglobin 10.3 g/dL (12.5-18.0); IMMATURE GRAN # 0.05 x10^3u/L (0.00-0.03); IMMATURE GRAN % 0.6 % (0.00-0.4); Lymphocyte (Absolute #) 1.11 x10^3/uL (1.0-4.6); Lymphocytes % 12.8 % (24.0-44.0); Mean Cell Volume 93.8 fL (78-100); Mean Corpuscular Hemoglobin 29.1 pg (26-32); Mean Platelet Volume 9.9 fL (7.5-11.0); Monocyte (Absolute #) 0.34 x10^3/uL (0.0-1.3); Monocytes % 3.9 % (0.0-12.0); Neutrophil % 81.7 % (36.0-66.0); Platelet Count 446 x10^3/uL (150-450); Red Blood Count 3.54 x10^6/uL (4.1-5.6); White Blood Count 8.7 x10^3/uL (4.0-10.5)
--- NOTE | 2023-06-28 16:42 | ERPHSYRPT ---
- History of Present Illness Time Seen by Provider: 06/28/23 15:59 Source: patient Exam Limitations: no limitations Patient Subjective Stated Complaint: PT states "I have been short of breath for the past two days." Triage Nursing Assessment: Pt presented alert and oriented X 3, skin pwd. Pt able to speak in clear full setences. Pt tachypniec. Resting comfortably on the bed. Physician History: 68-year-old male history of triple bypass 3 weeks ago current smoker presents to our ED for evaluation of shortness of breath. Patient arrived via EMS. And route patient received Solu-Medrol and nebulizer treatment. Patient states he feels much better but his symptoms have not completely resolved. Patient is mildly nauseous. No vomiting. No trauma no fever no rash. No sick contacts. Symptoms are constant. Symptoms are moderate in intensity. Symptoms are worse with exertion. Shortness of breath improved with rest. Sister at bedside. They voiced no other complaints or concerns at this time. Portions of this note were created with voice recognition technology. There may be grammatical, spelling, punctuation or sound alike errors Timing/Duration: today Activities at Onset: none Severity of Dyspnea-Max: moderate Severity of Dyspnea-Current: mild Possible Cause: no prior episodes Modifying Factors: Improves With: activity Allergies/Adverse Reactions: morphine Allergy (Verified 05/29/23 03:04) Home Medications: Acetaminophen 325 mg [Tylenol 325 mg] 650 mg PO Q6H PRN PRN 05/04/23 [H istory] Albuterol Sulfate [Albuterol Sulfate Hfa] 2 puff PO Q6H PRN 05/04/23 [History] Atorvastatin Calcium 40 mg PO DAILY 05/04/23 [History] Buspirone HCl 5 mg [Buspar 5 mg] 10 mg PO BID 05/04/23 [History] Oxycodone HCl/Acetaminophen [Oxycodone-Acetaminophn 7.5-325] 1 tab PO Q6H PRN PRN 05/04/23 [History] Sertraline HCl [Zoloft] 100 mg PO HS 05/04/23 [History] Trazodone HCl 50 mg [Desyrel 50 mg] 50 mg PO HS 05/04/23 [History] Amiodarone HCl 200 mg PO DAILY 02/25/24 [History] Clopidogrel Bisulfate [PLAVIX Tablet] 75 mg PO DAILY 05/29/23 [History] Famotidine 20 mg [Pepcid 20 MG] 20 mg PO BIDAC 05/29/23 [History] Fenofibrate 54 mg PO DAILY 05/29/23 [History] Furosemide 40 mg [Lasix 40 MG] 40 mg PO BIDAC 05/29/23 [History] Gabapentin [Neurontin ] 300 mg PO BID 05/29/23 [History] Isosorbide Mononitrate 60 mg [Imdur 60MG] 60 mg PO DAILY 05/29/23 [History] Lisinopril 10 mg [Zestril 10 MG] 10 mg PO DAILY 05/29/23 [History] Losartan Potassium 50 mg [Cozaar 50 MG] 50 mg PO BID 05/29/23 [History] Metoprolol Tartrate 25 mg [Lopressor 25MG Tab] 25 mg PO BID 05/29/23 [History] Potassium Chloride [Klor-Con M20] 20 meq PO BIDAC 05/29/23 [History] Hx Tetanus, Diphtheria Vaccination/Date Given: No Hx Influenza Vaccination/Date Given: Yes Hx Pneumococcal Vaccination/Date Given: No Immunizations Up to Date: Yes Travel Risk - International Travel Have you traveled outside of the country in past 3 weeks: No - Emerging Infectious Disease Are you exhibiting symptoms associated with any current EIDs: Yes Symptoms: Shortness of Breath - Review of Systems Constitutional: No Symptoms, No Fever, No Chills Eyes: No Symptoms Ears, Nose, & Throat: No Symptoms Respiratory: No Symptoms, No Cough, No Dyspnea Cardiac: No Symptoms, No Chest Pain, No Edema, No Syncope Abdominal/Gastrointestinal: No Symptoms, No Abdominal Pain, No Nausea, No Vomiting, No Diarrhea Genitourinary Symptoms: No Symptoms, No Dysuria Musculoskeletal: No Symptoms, No Back Pain, No Neck Pain Skin: No Symptoms, No Rash Neurological: No Symptoms, No Dizziness, No Focal Weakness, No Sensory Changes Psychological: No Symptoms Endocrine: No Symptoms Hematologic/Lymphatic: No Symptoms Immunological/Allergic: No Symptoms All Other Systems: Reviewed and Negative - Past Medical History Pertinent Past Medical History: Yes Neurological History: No Pertinent History ENT History: Cataracts Cardiac History: High Cholesterol, Hypertension, Myocardial Infarction (MT) Respiratory History: COPD Endocrine Medical History: No Pertinent History Musculoskeletal History: Fractures GI Medical History: Cirrhosis History: No Pertinent History Psycho-Social History: Depression Male Reproductive Disorders: No Pertinent History Other Medical History: Right femur, abdominal aortic aneurysm, lung cancer - Past Surgical History Past Surgical History: Yes Neuro Surgical History: No Pertinent History Cardiac: CABG, Cardiac Stent Respiratory: Lobectomy Gastrointestinal: No Pertinent History Genitourinary: No Pertinent History Musculoskeletal: Orthopedic Surgery Male Surgical History: No Pertinent History Other Surgical History: right hip, left eye reconstruction. triple bypass - Social History Smoking Status: Current every day smoker How long have you smoked: 60 years Exposure to second hand smoke: No Drug Use: none Patient Lives Alone: No - Nursing Vital Signs Nursing Vital Signs: Initial Vital Signs Temperature 97.4 F 06/28/23 15:53 Pulse Rate 90 06/28/23 15:53 Respiratory Rate 26 H 06/28/23 15:53 O2 Sat by Pulse Oximetry 97 06/28/23 15:53 Pain Scale Pain Intensity 0 - Physical Exam General Appearance: no apparent distress, alert Eye Exam: PERRL/EOMI Ears, Nose, Throat Exam: hearing grossly normal, normal ENT inspection, normal pharynx Neck Exam: normal inspection, supple Respiratory Exam: diminished breath sounds Cardiovascular/Chest Exam: normal heart sounds, regular rate/rhythm Abdominal/Gastrointestinal Exam: soft, No tenderness, No distention, No mass Extremity Exam: non-tender, normal range of motion, normal inspection, no calf tenderness, no pedal edema Neurologic Exam: alert, oriented x 3, cooperative, crew scheduler II-XII nml as tested, sensation nml, No motor deficits Skin Exam: normal color, warm, No dry Lymphatic Exam: No adenopathy SpO2 Interpretation: normal SpO2: 94 O2 Delivery: Room Air - Course Nursing assessment & vital signs reviewed: Yes EKG Interpreted by Me: RATE (92), Sinus Rhythm, NORMAL AXIS, NORMAL INTERVALS - CT Exams Chest CT Interpretation: Tele-radiologist Report (Negative for PE. Stable right lung postop changes. Emphysema and AAA with stent. No new acute findings) Ordered Tests: Active Orders 24 hr Category Date Time Status Bobbin Marker STAT Care 06/28/23 16:14 Active EKG-ER Only STAT Care 06/28/23 16:13 Active Pulse Oximetry (ED) STAT Care 06/28/23 16:13 Active Telemetry q4h Care 06/28/23 18:33 Active CHEST WITH CONTRAST [CT] Stat Exams 06/28/23 17:00 Taken CBC W DIFF Stat Lab 06/28/23 16:30 Completed CMP Stat Lab 06/28/23 16:30 Completed D-DIMER QUANTITATIVE Stat Lab 06/28/23 16:30 Completed NT PRO BNPII Stat Lab 06/28/23 16:30 Received TROPONIN Q4H Lab 06/28/23 16:30 Completed TROPONIN Q4H Lab 06/28/23 20:15 Ordered TROPONIN Q4H Lab 06/29/23 00:15 Ordered Medication Summary Generic Name Dose Route Start Last Admin Trade Name Freq PRN Reason Stop Dose Admin Magnesium Sulfate/Dextrose 100 mls @ 100 mls/hr 06/28/23 18:45 Magnesium 1 Gm / 100 Ml D5w IV 06/28/23 20:44 Q1H GERSON Potassium Chloride 20 meq in 100 mls @ 50 mls/hr 06/28/23 18:45 Potassium Chloride 20 Meq In Water 100ml IV 06/28/23 22:44 Q2H GERSON Discontinued Medications Generic Name Dose Route Start Last Admin Trade Name Freq PRN Reason Stop Dose Admin Potassium Chloride 40 meq 06/28/23 18:33 Potassium Chloride Tab 10 Meq Tab PO 06/28/23 18:34 STAT ONE Potassium Chloride Confirm 06/28/23 18:42 Potassium Chloride Tab 10 Meq Tab Administered 06/28/23 18:43 Dose 40 meq .ROUTE .STK-MED ONE Lab/Rad Data: Laboratory Result Diagrams 06/28/23 16:30 06/28/23 16:30 Laboratory Results 06/28/23 06/28/23 06/28/23 Range/Units 16:30 16:30 16:30 WBC (4.0-10.5) x10^3/uL RBC (4.1-5.6) x10^6/uL Hgb (12.5-18.0) g/dL Hct (42-50) % MCV (78-100) fL MCH (26-32) pg MCHC (32-36) g/dL RDW (11.5-14.0) % Plt Count (150-450) x10^3/uL MPV (7.5-11.0) fL Gran % (36.0-66.0) % Immature Gran % (Auto) (0.00-0.4) % Nucleat RBC Rel Count (0.00-0.1) % Eos # (Auto) (0-0.5) x10^3/uL Immature Gran # (Auto) (0.00-0.03) x10^3u/L Absolute Lymphs (auto) (1.0-4.6) x10^3/uL Absolute Monos (auto) (0.0-1.3) x10^3/uL Absolute Nucleated RBC (0.00-0.01) x10^3u/L Lymphocytes % (24.0-44.0) % Monocytes % (0.0-12.0) % Eosinophils % (0.00-5.0) % Basophils % (0.0-0.4) % Absolute Granulocytes (1.4-6.9) x10^3/uL Basophils # (0-0.4) x10^3/uL D-Dimer 2.19 H* (0.0-0.50) mg/L Sodium 138 (135-145) mmol/L Potassium 3.2 L (3.5-5.1) mmol/L Chloride 99 (98-107) mmol/L Carbon Dioxide 29 (22-30) mmol/L Anion Gap 13.5 (5-15) MEQ/L BUN 14 (9-20) mg/dL Creatinine 0.81 (0.66-1.25) mg/dL Estimated GFR 94.9 ML/MIN Glucose 126 H (74-106) mg/dL Calcium 9.6 (8.4-10.2) mg/dL Total Bilirubin 0.50 (0.2-1.3) mg/dL AST 25 (17-59) U/L ALT 17 (0-50) U/L Alkaline Phosphatase 128 H (38-126) U/L Troponin I 0.050 H* (0.000-0.034) ng/mL Serum Total Protein 7.0 (6.3-8.2) g/dL Albumin 3.6 (3.5-5.0) g/dL 06/28/23 Range/Units 16:30 WBC 8.7 (4.0-10.5) x10^3/uL RBC 3.54 L (4.1-5.6) x10^6/uL Hgb 10.3 L (12.5-18.0) g/dL Hct 33.2 L (42-50) % MCV 93.8 (78-100) fL MCH 29.1 (26-32) pg MCHC 31.0 L (32-36) g/dL RDW 15.0 H (11.5-14.0) % Plt Count 446 (150-450) x10^3/uL MPV 9.9 (7.5-11.0) fL Gran % 81.7 H (36.0-66.0) % Immature Gran % (Auto) 0.6 H (0.00-0.4) % Nucleat RBC Rel Count 0.0 (0.00-0.1) % Eos # (Auto) 0.04 (0-0.5) x10^3/uL Immature Gran # (Auto) 0.05 H (0.00-0.03) x10^3u/L Absolute Lymphs (auto) 1.11 (1.0-4.6) x10^3/uL Absolute Monos (auto) 0.34 (0.0-1.3) x10^3/uL Absolute Nucleated RBC 0.00 (0.00-0.01) x10^3u/L Lymphocytes % 12.8 L (24.0-44.0) % Monocytes % 3.9 (0.0-12.0) % Eosinophils % 0.5 (0.00-5.0) % Basophils % 0.5 (0.0-0.4) % Absolute Granulocytes 7.12 H (1.4-6.9) x10^3/uL Basophils # 0.04 (0-0.4) x10^3/uL D-Dimer (0.0-0.50) mg/L Sodium (135-145) mmol/L Potassium (3.5-5.1) mmol/L Chloride (98-107) mmol/L Carbon Dioxide (22-30) mmol/L Anion Gap (5-15) MEQ/L BUN (9-20) mg/dL Creatinine (0.66-1.25) mg/dL Estimated GFR ML/MIN Glucose (74-106) mg/dL Calcium (8.4-10.2) mg/dL Total Bilirubin (0.2-1.3) mg/dL AST (17-59) U/L ALT (0-50) U/L Alkaline Phosphatase (38-126) U/L Troponin I (0.000-0.034) ng/mL Serum Total Protein (6.3-8.2) g/dL Albumin (3.5-5.0) g/dL - Progress Progress: improved Air Movement: good Progress Note: 68-year-old male history of hyperlipidemia hypertension CABG presents to the emergency department for evaluation of shortness of breath. Patient arrived via EMS. Patient received Solu-Medrol and a nebulizer treatment. Physical exam essentially nonremarkable. Laboratory workup reveals hypokalemia. Patient received magnesium and potassium replacement. Initial troponin elevated at 0.050. D-dimer elevated. However CTA chest negative for PE. In light of patient's elevated troponin patient will be transferred to higher level of care. Patient's knowledge engineer is Dr. Phipps who is at [facility]. His thoracic surgeon is Dr. Alcaraz who is also on staff at [facility]. Plan of care discussed with patient. He agrees to transfer to [facility] for further evaluation and treatment. Patient accepted by Dr. Babb I will 184 Portions of this note were created with voice recognition technology. There may be grammatical, spelling, punctuation or sound alike errors Complexity problem addressed is high acute complicated. Patient has an elevated cardiac troponin and significant hypokalemia No critical care time Complexity of data reviewed and analyzed is extensive. Test ordered test reviewed. Results analyzed and correlated clinically with history and physical exam. Vital stable. Management discussed with hospitalist via transfer center. Patient accepted by Dr. Babb at 1845 Risk of complication and or risk of morbidity/mortality of patient management is high. Patient requires higher level of care. Patient be transferred to [facility] for further evaluation and treatment. Vital stable. Time spent to transfer patient is approximately 30 minutes. Plan of care established for shared decision making. No social determinants of health present impede follow-up. 06/28/23 18:53 Blood Culture(s) Obtained: No Antibiotics given: No Counseled pt/family regarding: lab results, diagnosis, need for follow-up, rad results - Departure Departure Disposition: Transfer Clinical Impression: Chest pain, Elevated troponin, ACS (acute coronary syndrome), Hypokalemia, Normocytic anemia Condition: Stable Critical Care Time: No Referrals: LOULOU BOLAND MD [Primary Care Provider] - Follow up/PCP as directed
[2023-06-28 16:52] LABS: ALBUMIN 3.6 g/dL (3.5-5.0); ANION GAP 13.5 MEQ/L (5-15); BILIRUBIN,TOTAL 0.5 mg/dL (0.2-1.3); Calcium 9.6 mg/dL (8.4-10.2); Creatinine 1 0.81 mg/dL (0.66-1.25); EST GLOMERULAR FILTRATION RATE 94.9 ML/MIN; Potassium 3.2 mmol/L (3.5-5.1)
[2023-06-28] MEDS ORDERED: Klor Con ONE (18:42)
[2023-06-28] MEDS ORDERED: POTASSIUM CHLORIDE 20 mEq IN WATER 100ML 100 ML IV ONE (18:42)
[2023-06-28] MEDS ORDERED: Magnesium 1 Gm / 100 Ml D5W*** 100 ML IV ONE (18:42)
[2023-06-28] MEDS: POTASSIUM CHLORIDE 20 mEq IN WATER 100ML 20 MEQ/100 ML BAG IV SCH (18:46)
[2023-06-28] MEDS: Klor Con PO ONE (18:46)
[2023-06-28] MEDS: Magnesium 1 Gm / 100 Ml D5W*** 100 ML IV SCH (18:47)
[2023-06-28] MEDS ORDERED: Sodium Chloride 0.9% 1000 ML 1,000 ML ONE (18:49)
[2023-06-28] MEDS: Sodium Chloride 0.9% 1000 ML 1,000 ML IV SCH (18:54)
[2023-06-28 19:28] VITALS: BP 157/77; PULSE 82; RESP 20; O2SAT 95
--- NOTE | 2023-06-29 08:43 | XRAY ---
Indication: Short of breath. Elevated d-dimer. Multiple contiguous axial images obtained through the chest using 80 cc Isovue 370 contrast and PE protocol. Comparison: May 29, 2023 Good opacification of the pulmonary arteries to include the lobar and segmental branches. No pulmonary embolus. Heart not enlarged again with CABG. Aorta again moderately arteriosclerotic with grossly stable mid descending thoracic aorta saccular aneurysms. Stable tiny subcarinal calcified nodes. No pathologic mediastinal/hilar lymphadenopathy. Lungs again demonstrates extensive pulmonary emphysema, right lung postsurgical pleural parenchymal scarring/thickening with volume loss, and scattered fibrosis/scarring. No new pulmonary mass, infiltrate, effusion, or pneumothorax. Bony thorax intact again with sternotomy wires. Limited upper abdomen again demonstrates mild fatty liver, incompletely visualized AAA with stent graft, right renal atrophy, and small left renal cyst. Impression: 1. Negative pulmonary embolus. No new/acute cardiopulmonary abnormalities. 2. Again chronic findings including pulmonary emphysema, right lung postsurgical changes, arteriosclerotic disease with descending thoracic aortic saccular aneurysms, incompletely visualized AAA with stent, fatty liver, right renal atrophy, left renal cyst, and old granulomatous disease.
== END 2023-06-28 19:32 | disposition short-term general hospital (02) ==
LOC: ED 15:52
DX: I24.9 Acute ischemic heart disease, unspecified (principal); R07.9 Chest pain, unspecified; R77.8 Other specified abnormalities of plasma proteins; E87.6 Hypokalemia; D64.9 Anemia, unspecified; R06.02 Shortness of breath; R11.0 Nausea; E78.5 Hyperlipidemia, unspecified; I10 Essential (primary) hypertension; Z79.02 Long term (current) use of antithrombotics/antiplatelets; Z79.899 Other long term (current) drug therapy; Z72.0 Tobacco use
CPT/HCPCS: 36415; 71260; 80053; 83880; 84484; 85025; 85379; 93005; 93041; 94760; 96365; 96366; 96368; 99285; J3475; J3480; A9270-GY